=== PATIENT | male | born 1970 | race Hispanic/Latino ===

== ENCOUNTER 2017-11-06 11:50 | Emergency (ER) | payer MEDICARE ==
[~2017-11-06 11:50] MED LIST: ALBU8.5H8 IH; BENZ-51 PO; BUSP15TA3 PO; CANA1TAB4 PO; ESOM40CA PO; GABA-531 PO; HYDR-4060 PO; INSU100I13 SQ; LORA10TA7 PO; LUBI24CA2 PO; MONT10TA24 PO; OLME5TAB PO; PRED10TA3 PO; ROSU10TA PO; SIME125T52 PO; SUCR1TAB2 PO; THEO400T3 PO; TIOT18CA3 IH; TRAZ150T79 PO
[2017-11-06] MEDS ORDERED: MAGNESIUM 2GM PREMIX 50ML 50 ML IV ONE (12:31)
[2017-11-06] MEDS ORDERED: METHYLPREDNISOLONE SOD SUCC 125MG/2ML VIAL ONE (12:31)
[2017-11-06 12:34] LABS: BASOPHILS % (AUTO) 0.5 % (0.0-5.0); EOSINOPHILS % (AUTO) 0.2 % (0.0-8.0); LYMPHOCYTES % (AUTO) 7.3 % (21.0-51.0); MEAN CORPUSCULAR HEMOGLOBIN 29.2 pg (27.0-33.0); MEAN CORPUSCULAR HGB CONC 31.7 g/dL (32.0-36.0); MEAN CORPUSCULAR VOLUME 92.2 fL (79-99); MONOCYTES % (AUTO) 3.1 % (3.0-13.0); NEUTROPHILS % (AUTO) 88.9 % (40.0-77.0); PLATELET COUNT (AUTO) 251 K/uL (130-400); RED BLOOD CELL COUNT(AUTO) 4.34 MIL/uL (4.50-6.20); RED CELL DISTRIBUTION WIDTH 13.9 % (11.0-15.5); WHITE BLOOD COUNT (AUTO) 10.8 K/uL (4.8-10.8)
[2017-11-06 12:35] LABS: APPEARANCE,URINE Clear (CLEAR); BILIRUBIN,URINE Negative (NEGATIVE); COLOR,URINE Yellow (YELLOW); GLUCOSE, URINE (UA) >=1000 mg/dL (NEGATIVE); KETONES,URINE 40 mg/dL (NEGATIVE); LEUKOCYTE ESTERASE ,URINE Negative (NEGATIVE); NITRATE,URINE Negative (NEGATIVE); OCCULT BLOOD,URINE Negative (NEGATIVE); PH,URINE 7.5 (5.0-8.0); PROTEIN,URINE Negative (NEGATIVE); UROBILINOGEN,URINE 0.2 mg/dL (0.2-1.0)
[2017-11-06 12:41] LABS: CREATININE 0.8 mg/dL (0.5-1.5); POTASSIUM 4.2 mmol/L (3.5-5.1)
[2017-11-06 12:45] LABS: BACTERIA,URINE Rare /HPF (None Seen); RBC,URINE 0-1 /HPF (0-1); SQUAMOUS EPITHELIAL CELL,UR Rare /LPF (0-2); WBC,URINE 0-1 /HPF (0-1)
[2017-11-06] MEDS ORDERED: IPRATROPIUM/ALBUTEROL SULFATE 3 ML SOLUTION IH ONE (13:21)
[2017-11-06 13:41] LABS: B-TYPE NATRIURETIC PEPTIDE 12 pg/mL (0-100)
[2018-04-26] MEDS ORDERED: OLME5TAB PO (12:00)
[2018-04-26] MEDS ORDERED: ASPI-1197 PO (12:00)
[2018-04-26] MEDS ORDERED: FEXO-59 PO (12:00)
[2018-04-26] MEDS ORDERED: ATOR10TA69 PO (12:00)
[2018-04-26] MEDS ORDERED: METOPROLOL PO (12:00)
[2018-04-26] MEDS ORDERED: INSU3INS9 SQ (12:00)
[2018-04-26] MEDS ORDERED: TIOT18CA3 IH (12:00)
[2018-04-26] MEDS ORDERED: PRED20TA3 PO (12:00)
[2018-04-26] MEDS ORDERED: SIME80TA12 PO (12:00)
[2018-04-26] MEDS ORDERED: LINA290C PO (12:00)
[2018-04-26] MEDS ORDERED: THEOPHYLLINE PO (12:00)
[2018-04-26] MEDS ORDERED: FURO20TA4 PO (12:00)
[2018-04-26] MEDS ORDERED: BENZONATE PO (12:00)
== END 2017-11-06 15:56 | disposition home or self-care (01) ==
LOC: EDH 11:50
DX: J44.1 Chronic obstructive pulmonary disease with (acute) exacerbation (principal); I10 Essential (primary) hypertension; E11.9 Type 2 diabetes mellitus without complications; Z79.4 Long term (current) use of insulin
CPT/HCPCS: 36415; 71045; 80048; 81001; 83880; 84484; 85025; 87804 ×2; 93005; 96365; 96375; 99285; J2930; J3475

== ENCOUNTER → 2017-12-09 | Outpatient (CLI) | payer MEDICARE ==
[~2017-12-09] MED LIST changes: +ASPI-1197 PO; +ATOR10TA69 PO; +BENZONATE PO; +FEXO-59 PO; +FURO20TA4 PO; +INSU3INS9 SQ; +LINA290C PO; +METOPROLOL PO; +PRED20TA3 PO; +SIME80TA12 PO; +THEOPHYLLINE PO
== END | disposition home or self-care (01) ==
LOC: SHCH 11:31
PROVIDERS: ATTEND Internal Medicine Cardiovascular Disease
DX: R00.2 Palpitations (principal); R06.00 Dyspnea, unspecified
CPT/HCPCS: 93306

== ENCOUNTER → 2017-12-16 | Outpatient (CLI) | payer MEDICARE ==
[2017-12-16 14:15] LABS: ABG BASE EXCESS 8.3 mmol/L (-2.0-3.0); ABG HCO3 35.3 mmol/L (21.0-28.0); ABG OXYGEN SATURATION 80.3 % (95.0-99.0); ABG PCO2 58 mmHg (35-48)
== END ==
LOC: RESP 13:32
PROVIDERS: ATTEND Internal Medicine Pulmonary Disease
DX: I10 Essential (primary) hypertension (principal); J44.9 Chronic obstructive pulmonary disease, unspecified; M41.9 Scoliosis, unspecified; R09.02 Hypoxemia; G47.33 Obstructive sleep apnea (adult) (pediatric); E66.9 Obesity, unspecified; G47.61 Periodic limb movement disorder
CPT/HCPCS: 36600; 82803

== ENCOUNTER 2018-07-21 16:02 | Emergency (ER) | payer MEDICARE ==
[~2018-07-21 16:02] MED LIST changes: -ALBU8.5H8 IH; -BENZ-51 PO; -INSU100I13 SQ; -LORA10TA7 PO; -LUBI24CA2 PO; -PRED10TA3 PO; -ROSU10TA PO; -SIME125T52 PO; -SUCR1TAB2 PO; -THEO400T3 PO; -TRAZ150T79 PO
[2018-07-21 16:30] LABS: APPEARANCE,URINE Clear (CLEAR); BILIRUBIN,URINE Negative (NEGATIVE); COLOR,URINE Yellow (YELLOW); GLUCOSE, URINE (UA) >=1000 mg/dL (NEGATIVE); KETONES,URINE 40 mg/dL (NEGATIVE); LEUKOCYTE ESTERASE ,URINE Negative (NEGATIVE); NITRATE,URINE Negative (NEGATIVE); OCCULT BLOOD,URINE Negative (NEGATIVE); PROTEIN,URINE Negative (NEGATIVE); UROBILINOGEN,URINE 0.2 mg/dL (0.2-1.0)
[2018-07-21 16:42] LABS: BACTERIA,URINE None Seen /HPF (None Seen); RBC,URINE None Seen /HPF (0-1); SQUAMOUS EPITHELIAL CELL,UR 0-2 /HPF (0-2); WBC,URINE None Seen /HPF (0-1)
[2018-07-21] MEDS ORDERED: AMIODARONE HCL 50 MG/ML 3 ML VIAL ONE (17:01)
[2018-07-21] MEDS ORDERED: NITROGLYCERIN 1GM/1 INCH PACKET TD ONE (17:02)
[2018-07-21] MEDS ORDERED: ASPIRIN 325 MG TABLET ONE (17:02)
[2018-07-21 17:07] LABS: BASOPHILS % (AUTO) 0.3 % (0.0-5.0); EOSINOPHILS % (AUTO) 0.2 % (0.0-8.0); HEMATOCRIT 41.5 % (42-54); LYMPHOCYTES % (AUTO) 9.5 % (21.0-51.0); MEAN CORPUSCULAR HEMOGLOBIN 29.1 pg (27.0-33.0); MEAN CORPUSCULAR HGB CONC 31.8 g/dL (32.0-36.0); MEAN CORPUSCULAR VOLUME 91.6 fL (79-99); MONOCYTES % (AUTO) 7.8 % (3.0-13.0); NEUTROPHILS % (AUTO) 82.2 % (40.0-77.0); PLATELET COUNT (AUTO) 214 K/uL (130-400); RED BLOOD CELL COUNT(AUTO) 4.52 MIL/uL (4.50-6.20); RED CELL DISTRIBUTION WIDTH 13.6 % (11.0-15.5); WHITE BLOOD COUNT (AUTO) 9.5 K/uL (4.8-10.8)
[2018-07-21 17:13] LABS: INR 0.92 (0.85-1.15); PARTIAL THROMBOPLASTIN TIME 24.3 SEC (26.3-35.5); PROTHROMBIN TIME 9.7 SEC (9.6-11.6)
[2018-07-21] MEDS ORDERED: SODIUM CHLORIDE 0.9% 500ML 500 ML IV ONE (19:41)
[2018-07-21 20:13] LABS: CREATININE 0.9 mg/dL (0.5-1.5); POTASSIUM 4.2 mmol/L (3.5-5.1)
[2018-07-21 20:18] LABS: ALBUMIN 3.7 g/dL (3.5-5.0); BILIRUBIN,TOTAL 0.3 mg/dL (0.2-1.0)
[2018-07-21] MEDS ORDERED: KETOROLAC TROMETHAMINE 30MG/ML ONE (20:41)
== END 2018-07-21 23:03 | disposition home or self-care (01) ==
LOC: EDH 16:02
DX: S20.211A Contusion of right front wall of thorax, initial encounter (principal); R00.0 Tachycardia, unspecified; E10.8 Type 1 diabetes mellitus with unspecified complications; M41.9 Scoliosis, unspecified; J44.9 Chronic obstructive pulmonary disease, unspecified; I10 Essential (primary) hypertension; Z98.890 Other specified postprocedural states; W18.39XA Other fall on same level, initial encounter; Y93.89 Activity, other specified; Y92.89 Other specified places as the place of occurrence of the external cause; Y99.8 Other external cause status
CPT/HCPCS: 36415; 71101; 80053; 81001; 82550; 84484; 85025; 85378; 85610; 85730; 93005; 96374; 96375; 99291; J0282; J1885; J7040

== ENCOUNTER 2019-01-05 14:55 | Emergency (ER) | payer MEDICARE ==
[2019-01-05] MEDS ORDERED: IPRATROPIUM/ALBUTEROL SULFATE 3 ML SOLUTION IH ONE (15:24)
[2019-01-05] MEDS ORDERED: MECLIZINE HCL 25 MG TABLET ONE ×2 (15:52→17:30)
[2019-01-05 16:03] LABS: BASOPHILS % (AUTO) 0.6 % (0.0-5.0); EOSINOPHILS % (AUTO) 0.2 % (0.0-8.0); HEMATOCRIT 42.2 % (42-54); LYMPHOCYTES % (AUTO) 5.6 % (21.0-51.0); MEAN CORPUSCULAR HEMOGLOBIN 29.3 pg (27.0-33.0); MEAN CORPUSCULAR HGB CONC 31.7 g/dL (32.0-36.0); MEAN CORPUSCULAR VOLUME 92.5 fL (79-99); MONOCYTES % (AUTO) 2.5 % (3.0-13.0); NEUTROPHILS % (AUTO) 91.1 % (40.0-77.0); NUCLEATED RED BLOOD CELLS 0.1 % (0.0-0.19); PLATELET COUNT (AUTO) 230 K/uL (130-400); RED BLOOD CELL COUNT(AUTO) 4.56 MIL/uL (4.50-6.20); RED CELL DISTRIBUTION WIDTH 13.8 % (11.0-15.5); WHITE BLOOD COUNT (AUTO) 10.8 K/uL (4.8-10.8)
[2019-01-05 16:24] LABS: POTASSIUM 5.1 mmol/L (3.5-5.1)
[2019-01-05 16:28] LABS: ALBUMIN 3.8 g/dL (3.5-5.0); BILIRUBIN,TOTAL 0.2 mg/dL (0.2-1.0); TOTAL PROTEIN, SERUM 6.5 g/dL (6.0-8.3)
== END 2019-01-05 19:31 | disposition home or self-care (01) ==
LOC: EDH 14:55
DX: J44.1 Chronic obstructive pulmonary disease with (acute) exacerbation (principal); H81.10 Benign paroxysmal vertigo, unspecified ear; E10.8 Type 1 diabetes mellitus with unspecified complications; I10 Essential (primary) hypertension; F41.9 Anxiety disorder, unspecified; Z98.890 Other specified postprocedural states; Z79.4 Long term (current) use of insulin
CPT/HCPCS: 36415; 71045; 80053; 84484; 85025; 93005; 94640

== ENCOUNTER 2019-05-27 15:19 | Emergency (ER) | payer MEDICARE ==
[2019-05-27] MEDS ORDERED: LIDOCAINE 5% TOPICAL PATCH TP ONE (15:31)
[2019-05-27] MEDS ORDERED: ACETAMINOPHEN EXTRA STRENGTH 500 MG TABLET ONE (15:31)
== END 2019-05-27 16:19 | disposition home or self-care (01) ==
LOC: EDH 15:19
DX: S29.011A Strain of muscle and tendon of front wall of thorax, initial encounter (principal); J44.9 Chronic obstructive pulmonary disease, unspecified; I10 Essential (primary) hypertension; E11.9 Type 2 diabetes mellitus without complications; F41.9 Anxiety disorder, unspecified; Z79.4 Long term (current) use of insulin; X58.XXXA Exposure to other specified factors, initial encounter; Y93.89 Activity, other specified; Y92.89 Other specified places as the place of occurrence of the external cause; Y99.8 Other external cause status
CPT/HCPCS: 71045

== ENCOUNTER → 2019-06-28 | Outpatient (CLI) | payer MEDICARE | END | disposition home or self-care (01) | LOC: RAH 07:51 | PROVIDERS: ATTEND Orthopaedic Surgery | DX: M75.101 Unspecified rotator cuff tear or rupture of right shoulder, not specified as traumatic (principal); M25.411 Effusion, right shoulder; M65.811 Other synovitis and tenosynovitis, right shoulder | CPT/HCPCS: 73221 ==

== ENCOUNTER 2020-01-06 13:57 | Emergency (ER) | payer MEDICARE ==
[~2020-01-06 13:57] MED LIST changes: -MONT10TA24 PO; +MONT10TA26 PO
[2020-01-06 15:45] LABS: BASOPHILS % (AUTO) 0.2 % (0.0-5.0); HEMATOCRIT 40.1 % (42-54); LYMPHOCYTES % (AUTO) 4.1 % (21.0-51.0); MEAN CORPUSCULAR HEMOGLOBIN 28.7 pg (27.0-33.0); MEAN CORPUSCULAR HGB CONC 28.4 g/dL (32.0-36.0); MONOCYTES % (AUTO) 4.2 % (3.0-13.0); NEUTROPHILS % (AUTO) 90.8 % (40.0-77.0); PLATELET COUNT (AUTO) 188 K/uL (130-400); RED BLOOD CELL COUNT(AUTO) 3.97 MIL/uL (4.50-6.20); RED CELL DISTRIBUTION WIDTH 12.5 % (11.0-15.5); WHITE BLOOD COUNT (AUTO) 11.1 K/uL (4.8-10.8)
[2020-01-06 16:03] LABS: CREATININE 1.1 mg/dL (0.5-1.5)
[2020-01-06 16:07] LABS: ALBUMIN 3.4 g/dL (3.5-5.0); BILIRUBIN,TOTAL 0.4 mg/dL (0.2-1.0); TOTAL PROTEIN, SERUM 6.7 g/dL (6.0-8.3)
[2020-01-06 16:55] LABS: APPEARANCE,URINE Clear (CLEAR); BILIRUBIN,URINE Negative (NEGATIVE); COLOR,URINE Yellow (YELLOW); GLUCOSE, URINE (UA) >=1000 mg/dL (NEGATIVE); KETONES,URINE 15 mg/dL (NEGATIVE); LEUKOCYTE ESTERASE ,URINE Negative (NEGATIVE); NITRATE,URINE Negative (NEGATIVE); OCCULT BLOOD,URINE Negative (NEGATIVE); PROTEIN,URINE Negative (NEGATIVE); UROBILINOGEN,URINE 0.2 mg/dL (0.2-1.0)
[2020-01-06 17:09] LABS: BACTERIA,URINE Rare /HPF (None Seen); SQUAMOUS EPITHELIAL CELL,UR Rare /HPF (0-2); WBC,URINE 0-1 /HPF (0-1)
== END 2020-01-06 18:28 | disposition home or self-care (01) ==
LOC: EDH 13:57
DX: S80.12XA Contusion of left lower leg, initial encounter (principal); F41.9 Anxiety disorder, unspecified; J45.909 Unspecified asthma, uncomplicated; J44.9 Chronic obstructive pulmonary disease, unspecified; E11.9 Type 2 diabetes mellitus without complications; I10 Essential (primary) hypertension; W18.39XA Other fall on same level, initial encounter; Y93.89 Activity, other specified; Y92.091 Bathroom in other non-institutional residence as the place of occurrence of the external cause; Y99.8 Other external cause status
CPT/HCPCS: 36415; 71045; 73590; 80053; 81001; 82550; 84484; 85025; 93005; 93971

== ENCOUNTER 2020-03-24 03:28 | Inpatient (IN) | payer MEDICARE ==
[2020-03-24] MEDS ORDERED: DILTIAZEM HCL 125 MG/25 ML VIAL IV ONE (03:39)
[2020-03-24 03:42] LABS: BASOPHILS % (AUTO) 0.2 % (0.0-5.0); EOSINOPHILS % (AUTO) 0.7 % (0.0-8.0); HEMATOCRIT 40.1 % (42-54); LYMPHOCYTES % (AUTO) 12.7 % (21.0-51.0); MEAN CORPUSCULAR HEMOGLOBIN 28.7 pg (27.0-33.0); MEAN CORPUSCULAR HGB CONC 28.4 g/dL (32.0-36.0); MONOCYTES % (AUTO) 10.9 % (3.0-13.0); NEUTROPHILS % (AUTO) 75.2 % (40.0-77.0); PLATELET COUNT (AUTO) 215 K/uL (130-400); RED BLOOD CELL COUNT(AUTO) 3.97 MIL/uL (4.50-6.20); RED CELL DISTRIBUTION WIDTH 12.3 % (11.0-15.5)
[2020-03-24] MEDS ORDERED: DILTIAZEM HCL 5 MG/ML 10 ML VIAL IV ONE (03:43)
[2020-03-24 03:52] LABS: CREATININE 0.9 mg/dL (0.5-1.5); POTASSIUM 3.8 mmol/L (3.5-5.1)
[2020-03-24 03:53] LABS: INR 0.99 (0.85-1.15); PARTIAL THROMBOPLASTIN TIME 26.9 SEC (26.3-35.5); PROTHROMBIN TIME 10.7 SEC (9.6-11.6)
[2020-03-24 03:57] LABS: ALBUMIN 3.4 g/dL (3.5-5.0); BILIRUBIN,TOTAL 0.3 mg/dL (0.2-1.0); THEOPHYLLINE 4.3 mcg/mL (10.0-20.0); TOTAL PROTEIN, SERUM 5.9 g/dL (6.0-8.3)
[2020-03-24] MEDS ORDERED: METOPROLOL TARTRATE 1 MG/ML 5ML VIAL IV ONE (04:55)
[2020-03-24 05:58] LABS: ABG BASE EXCESS 21.7 mmol/L (-2.0-3.0); ABG HCO3 54.9 mmol/L (21.0-28.0); ABG OXYGEN SATURATION 79.8 % (95.0-99.0); ABG PCO2 112 mmHg (35-48)
[2020-03-24] MEDS ORDERED: AMIODARONE HCL 150 MG in DEXTROSE 5%-WATER 100 ML IV SCH (06:30)
[2020-03-24] MEDS ORDERED: AMIODARONE HCL 450 MG in DEXTROSE 5%-WATER 250 ML IV SCH (06:30)
[2020-03-24] MEDS ORDERED: AMIODARONE HCL 360 MG in DEXTROSE 5%-WATER 200 ML IV SCH (06:30)
[2020-03-24] MEDS ORDERED: HYDROCODONE/ACETAMINOPHEN 5/325 MG TAB PO PRN ×2 (06:30)
[2020-03-24] MEDS ORDERED: ONDANSETRON HCL 4 MG/2 ML VIAL IVP PRN (06:30)
[2020-03-24] MEDS ORDERED: ACETAMINOPHEN 325 MG TAB PO PRN (06:30)
[2020-03-24] MEDS ORDERED: INSULIN R PO SS1 SQ SCH (07:30)
[2020-03-24] MEDS ORDERED: ENOXAPARIN SODIUM 40 MG/0.4 ML SYRINGE SQ SCH (09:00)
[2020-03-24] MEDS ORDERED: FAMOTIDINE/PF 20 MG/2 ML VIAL IV SCH (09:00)
== END 2020-03-24 09:03 | disposition left against medical advice (07) | DRG 310 ==
LOC: EDH 03:28 → EDHIP 05:57
PROVIDERS: ADMIT Internal Medicine; ATTEND Internal Medicine
DX: I48.91 Unspecified atrial fibrillation (principal); Z88.8 Allergy status to other drugs, medicaments and biological substances; F41.9 Anxiety disorder, unspecified; J44.9 Chronic obstructive pulmonary disease, unspecified; E11.9 Type 2 diabetes mellitus without complications; Z79.4 Long term (current) use of insulin; I10 Essential (primary) hypertension; Z53.29 Procedure and treatment not carried out because of patient's decision for other reasons
CPT/HCPCS: 36415; 36600; 71045; 80053; 80198; 82550; 82803; 83735; 83880; 84484; 85025; 85378; 85610; 85730; 93005; 99291; G0378; J0282; J3490; J7060

== ENCOUNTER 2020-03-28 21:08 | Inpatient (IN) | payer MEDICARE ==
[~2020-03-28] VITALS: Ht 167.6 cm; Wt 100.3 kg
[2020-03-28 22:04] LABS: BASOPHILS % (AUTO) 0.2 % (0.0-5.0); EOSINOPHILS % (AUTO) 0.1 % (0.0-8.0); HEMATOCRIT 42.4 % (42-54); LYMPHOCYTES % (AUTO) 7.1 % (21.0-51.0); MEAN CORPUSCULAR HEMOGLOBIN 27.9 pg (27.0-33.0); MEAN CORPUSCULAR HGB CONC 27.6 g/dL (32.0-36.0); MONOCYTES % (AUTO) 7.6 % (3.0-13.0); NEUTROPHILS % (AUTO) 84.3 % (40.0-77.0); PLATELET COUNT (AUTO) 218 K/uL (130-400); RED CELL DISTRIBUTION WIDTH 12.5 % (11.0-15.5); WHITE BLOOD COUNT (AUTO) 10.2 K/uL (4.8-10.8)
[2020-03-28 22:14] LABS: CREATININE 0.7 mg/dL (0.5-1.5); POTASSIUM 3.5 mmol/L (3.5-5.1)
[2020-03-28 22:19] LABS: ALBUMIN 3.6 g/dL (3.5-5.0); BILIRUBIN,TOTAL 0.4 mg/dL (0.2-1.0); TOTAL PROTEIN, SERUM 6.6 g/dL (6.0-8.3)
[2020-03-28 22:28] LABS: INR 0.96 (0.85-1.15); PROTHROMBIN TIME 10.4 SEC (9.6-11.6)
[2020-03-28 23:28] LABS: ABG BASE EXCESS 14.6 mmol/L (-2.0-3.0); ABG HCO3 51.1 mmol/L (21.0-28.0); ABG OXYGEN SATURATION 97.3 % (95.0-99.0); ABG PCO2 > 147 mmHg (35-48)
[2020-03-28] MEDS ORDERED: IPRATROPIUM/ALBUTEROL SULFATE 3 ML SOLUTION IH ONE (23:40)
[2020-03-28] MEDS ORDERED: FUROSEMIDE 10 MG/ML 4ML VIAL ONE (23:41)
[2020-03-28] MEDS ORDERED: CEFTRIAXONE SODIUM 1 GM ONE (23:42)
[2020-03-28] MEDS ORDERED: AZITHROMYCIN 500MG+NS 250ML 250 ML IV ONE (23:42)
[2020-03-29] VITALS (23 sets, daily range): BP systolic 82–140; BP diastolic 39–105
[2020-03-29] MEDS ORDERED: DiphenhydrAMINE HCL 50 MG/ML VIAL ONE (01:30)
[2020-03-29] MEDS ORDERED: METHYLPREDNISOLONE SOD SUCC 125MG/2ML VIAL ONE (01:31)
[2020-03-29] MEDS ORDERED: PROPOFOL 1000 MG/100 ML 100 ML IV ONE ×2 (02:02→15:19)
[2020-03-29 02:19] LABS: ABG BASE EXCESS 16.6 mmol/L (-2.0-3.0); ABG HCO3 51.2 mmol/L (21.0-28.0); ABG OXYGEN SATURATION 98.4 % (95.0-99.0); ABG PCO2 145 mmHg (35-48)
[2020-03-29] MEDS ORDERED: IPRATROPIUM/ALBUTEROL SULFATE 3 ML SOLUTION IH ONE (03:31)
[2020-03-29] MEDS ORDERED: ALBUTEROL SULFATE 0.083% 2.5 MG/3 ML INH IH ONE (03:31)
[2020-03-29 04:02] LABS: ABG BASE EXCESS 13.8 mmol/L (-2.0-3.0); ABG HCO3 50.3 mmol/L (21.0-28.0); ABG OXYGEN SATURATION 96.7 % (95.0-99.0); ABG PCO2 > 147 mmHg (35-48)
[2020-03-29 05:05] LABS: APPEARANCE,URINE Clear (CLEAR); BILIRUBIN,URINE Negative (NEGATIVE); COLOR,URINE Yellow (YELLOW); GLUCOSE, URINE (UA) >=1000 mg/dL (NEGATIVE); KETONES,URINE 40 mg/dL (NEGATIVE); LEUKOCYTE ESTERASE ,URINE Negative (NEGATIVE); NITRATE,URINE Negative (NEGATIVE); OCCULT BLOOD,URINE Nonhemolyzed Trace (NEGATIVE); PH,URINE 5.5 (5.0-8.0); PROTEIN,URINE POS 1+ mg/dL (NEGATIVE); UROBILINOGEN,URINE 0.2 mg/dL (0.2-1.0)
[2020-03-29 05:15] LABS: AMORPHOUS SEDIMENT,UR Rare /LPF (None Seen); BACTERIA,URINE None Seen /HPF (None Seen); HYALINE CASTS, URINE 0-1 /LPF (0-1 /LPF); RBC,URINE 0-1 /HPF (0-1); SQUAMOUS EPITHELIAL CELL,UR Rare /HPF (0-2); WBC,URINE 0-1 /HPF (0-1); YEAST,URINE BUDDING None Seen /HPF (None Seen)
[2020-03-29 05:55] LABS: BASOPHILS % (AUTO) 0.1 % (0.0-5.0); HEMATOCRIT 43.8 % (42-54); LYMPHOCYTES % (AUTO) 1.4 % (21.0-51.0); MEAN CORPUSCULAR HEMOGLOBIN 28.6 pg (27.0-33.0); MEAN CORPUSCULAR HGB CONC 26.9 g/dL (32.0-36.0); MEAN CORPUSCULAR VOLUME 106.1 fL (79-99); NEUTROPHILS % (AUTO) 94.5 % (40.0-77.0); PLATELET COUNT (AUTO) 197 K/uL (130-400); RED BLOOD CELL COUNT(AUTO) 4.13 MIL/uL (4.50-6.20); RED CELL DISTRIBUTION WIDTH 12.5 % (11.0-15.5); WHITE BLOOD COUNT (AUTO) 13.5 K/uL (4.8-10.8)
[2020-03-29 06:13] LABS: AMPHET/METH SCREEN,URINE NEGATIVE (NEGATIVE); BARBITURATE SCREEN, URINE NEGATIVE (NEGATIVE); BENZODIAZEPINES SCREEN,URINE POSITIVE (NEGATIVE); CANNABINOID SCREEN,URINE NEGATIVE (NEGATIVE); COCAINE SCREEN,URINE NEGATIVE (NEGATIVE); OPIATE SCREEN,URINE NEGATIVE (NEGATIVE); PHENCYCLIDINE SCREEN,URINE NEGATIVE (NEGATIVE)
[2020-03-29 06:24] LABS: ALANINE AMINOTRANSFERASE 22 U/L (12-78); ALBUMIN 3.5 g/dL (3.5-5.0); ASPARTATE AMINOTRANSFERASE 14 U/L (10-37); BILIRUBIN,TOTAL 0.4 mg/dL (0.2-1.0); CHLORIDE 99 mmol/L (101-111); CREATINE KINASE, TOTAL 31 U/L (21-232); CREATININE 0.8 mg/dL (0.5-1.5); GLOMERULAR FILTR. RATE CALC 108 mL/min (>60); GLUCOSE,RANDOM 149 mg/dL (70-105); LACTATE DEHYDROGENASE 196 U/L (81-234); MYOGLOBIN 60 ng/mL (10-92); POTASSIUM 3.9 mmol/L (3.5-5.1); SODIUM SERUM 147 mmol/L (136-145); TOTAL PROTEIN, SERUM 6.4 g/dL (6.0-8.3); TROPONIN I < 0.04 ng/mL (0.00-0.06); UREA NITROGEN, BLOOD 15 mg/dL (7-18)
[2020-03-29 06:52] LABS: CARBON DIOXIDE 47 mmol/L (21-32)
[2020-03-29] MEDS ORDERED: ENOXAPARIN SODIUM 40 MG/0.4 ML SYRINGE SQ ONE (07:42)
[2020-03-29] MEDS ORDERED: METHYLPREDNISOLONE SOD SUCC 40MG/ML 1ML ONE (07:42)
[2020-03-29 07:47] LABS: ABG BASE EXCESS 16.3 mmol/L (-2.0-3.0); ABG HCO3 48.5 mmol/L (21.0-28.0); ABG OXYGEN SATURATION 82.9 % (95.0-99.0); ABG PCO2 102 mmHg (35-48)
[2020-03-29] MEDS ORDERED: FAMOTIDINE/PF 20 MG/2 ML VIAL IV ONE (07:56)
[2020-03-29] MEDS: FAMOTIDINE/PF 20 MG/2 ML VIAL IV SCH ×2 (09:00→20:17)
[2020-03-29] MEDS: METHYLPREDNISOLONE SOD SUCC 40MG/ML 1ML IVP SCH ×2 (09:00→20:17)
[2020-03-29] MEDS: ENOXAPARIN SODIUM 40 MG/0.4 ML SYRINGE SQ SCH (09:00)
[2020-03-29] MEDS ORDERED: SODIUM CHLORIDE 0.9% 100 ML IV ONE ×2 (09:03→09:04)
[2020-03-29] MEDS ORDERED: CEFTRIAXONE SODIUM 1 GM ONE (09:03)
[2020-03-29] MEDS ORDERED: SUCCINYLCHOLINE CHLORIDE 20 MG/ML 10 ML VIAL IVP ONE (09:31)
[2020-03-29] MEDS ORDERED: ETOMIDATE 2 MG/ML 10 ML VIAL IVP ONE (09:31)
[2020-03-29] MEDS ORDERED: MORPHINE SULFATE 2 MG/ML 1ML SYG ONE (10:36)
[2020-03-29] MEDS: CEFTRIAXONE SODIUM 1 GM IVP SCH ×2 (11:00→21:49)
[2020-03-29] MEDS ORDERED: SERTRALINE HCL 50 MG TABLET PO SCH (11:45)
[2020-03-29] MEDS ORDERED: SERTRALINE HCL 50 MG TABLET ONE (12:27)
--- NOTE | 2020-03-29 15:10 | NUR ---
RECEIVED PT FROM ER, PT ON BIPAP VERY SHORT OF BREATH, TACHYPNEIC AND TACHYCARDIC, DR. VALENTINO AT BEDSIDE. PT AWAKE AND ALERT. SISTERS AT BEDSIDE. MD DISCUSSED WITH PT AND PT SISTER PT CRITICAL CONDITION AND CHRONIC RESPIRATORY FAILURE ISSUES DUE TO SCOLIOSIS IN DETAIL AND OFFERED OPTIONS. PT AGREES TO INTUBATION AND TRACHEOSTOMY. RISKS DISCUSSED AND ALL QUESTIONS WERE ANSWERED BY MD.
[2020-03-29] MEDS ORDERED: SODIUM CHLORIDE 0.9% 1000ML 1,000 ML IV ONE (15:20)
[2020-03-29] MEDS ORDERED: FENTANYL CITRATE PF 50 MCG/1 ML 2ML VIAL ONE (15:21)
[2020-03-29] MEDS ORDERED: FLUT1BLS3 IH (15:47)
[2020-03-29] MEDS ORDERED: BENZ-51 PO (15:47)
[2020-03-29] MEDS ORDERED: LUBI24CA2 PO (15:47)
[2020-03-29] MEDS ORDERED: EMPA25TA PO (15:48)
[2020-03-29] MEDS ORDERED: METO25PO2 MC (15:50)
[2020-03-29] MEDS ORDERED: SUCR1TAB2 PO (15:51)
[2020-03-29] MEDS ORDERED: GLIM2TAB30 PO (15:53)
[2020-03-29] MEDS ORDERED: SERT50TA PO (15:56)
[2020-03-29] MEDS ORDERED: PROPOFOL 1000 MG/100 ML IV PRN (16:00)
--- NOTE | 2020-03-29 16:30 | NUR ---
DR. VALENTINO AT BEDSIDE PT ORALLY INTUBATED WITH ETT SIZE 8 20 CM AT LIPS. TOLERATED WELL. PLACED ON PRESCRIBED VENT SETTINGS.
[2020-03-29] MEDS ORDERED: FENTANYL 1000MCG+NS 100ML 100 ML ONE (16:41)
[2020-03-29] MEDS: PROPOFOL 1000 MG/100 ML 100 ML IV SCH ×3 (17:01→21:44)
[2020-03-29] MEDS ORDERED: FENTANYL CITRATE PF 0.05 MG/ML 1,000 MCG in SODIUM CHLORIDE 0.9% 100 ML IVPB SCH (17:15)
[2020-03-29] MEDS: FENTANYL 1000MCG+NS 100ML IV.SOLN IV SCH ×2 (17:54→21:46)
[2020-03-29 18:34] LABS: ABG BASE EXCESS 12.8 mmol/L (-2.0-3.0); ABG HCO3 40.7 mmol/L (21.0-28.0); ABG PCO2 66 mmHg (35-48)
--- NOTE | 2020-03-29 18:43 | NUR ---
BELONGINGS SISTER CRYSTAL ACOSTA BELONGS AND HOME MEDICATIONS Addendum: 03/29/20 at 1851 by JESSEE WAN RN RN Amended: Links added.
--- NOTE | 2020-03-29 18:46 | NUR ---
UNABLE TO COMPLETE PATIENT ADMISSION DUE TO PT INTUBATED AND SEDATED. FAMILY IS UNABLE TO BE PRESENT AT THIS TIME. Addendum: 03/29/20 at 1851 by JESSEE WAN RN RN Amended: Links added.
--- NOTE | 2020-03-29 19:47 | NUR ---
Assumed care of patient after report received from dayshift nurse. Patient sedated on Fentanyl, Propofol drips. Initial assessment completed. US of lower extremities in progress.
[2020-03-29] MEDS: BUSPIRONE HCL 5 MG TABLET PO SCH (20:17)
[2020-03-29] MEDS: AZITHROMYCIN 500MG+NS 250ML 250 ML IV SCH ×2 (23:03→23:04)
[2020-03-30] VITALS (63 sets, daily range): BP systolic 96–142; BP diastolic 57–90
[2020-03-30] MEDS: PROPOFOL 1000 MG/100 ML 100 ML IV SCH ×5 (00:37→23:36)
[2020-03-30 03:37] LABS: MEAN CORPUSCULAR HEMOGLOBIN 28.4 pg (27.0-33.0); MEAN CORPUSCULAR HGB CONC 28.3 g/dL (32.0-36.0); MEAN CORPUSCULAR VOLUME 100.3 fL (79-99); RED BLOOD CELL COUNT(AUTO) 3.59 MIL/uL (4.50-6.20); RED CELL DISTRIBUTION WIDTH 12.7 % (11.0-15.5)
[2020-03-30 03:49] LABS: CREATININE 0.9 mg/dL (0.5-1.5); POTASSIUM 3.5 mmol/L (3.5-5.1)
[2020-03-30 03:52] LABS: INR 1.03 (0.85-1.15); PARTIAL THROMBOPLASTIN TIME 24.7 SEC (26.3-35.5); PROTHROMBIN TIME 11.1 SEC (9.6-11.6)
[2020-03-30 05:21] LABS: ABG BASE EXCESS 9.3 mmol/L (-2.0-3.0); ABG HCO3 36.6 mmol/L (21.0-28.0); ABG OXYGEN SATURATION 97.7 % (95.0-99.0); ABG PCO2 61 mmHg (35-48)
--- NOTE | 2020-03-30 05:55 | NUR ---
Potassium level 3.5. Call placed to hospitalist station supervisor. Order obtained for potassium replacement protocol, magnesium level, and magnesium replacement protocol.
[2020-03-30] MEDS ORDERED: MAGNESIUM 2GM PREMIX 50ML 50 ML IV ONE (06:33)
--- NOTE | 2020-03-30 06:47 | NUR ---
Magnesium level 1.9. Replacement in progress.
[2020-03-30] MEDS: MAGNESIUM 2GM PREMIX 50ML 50 ML IV PRN (07:58)
[2020-03-30] MEDS: ENOXAPARIN SODIUM 40 MG/0.4 ML SYRINGE SQ SCH (08:29)
[2020-03-30] MEDS: FAMOTIDINE/PF 20 MG/2 ML VIAL IV SCH ×2 (08:29→21:19)
[2020-03-30] MEDS: METHYLPREDNISOLONE SOD SUCC 40MG/ML 1ML IVP SCH (08:30)
[2020-03-30] MEDS: SERTRALINE HCL 50 MG TABLET PO SCH (08:31)
[2020-03-30] MEDS: BUSPIRONE HCL 5 MG TABLET PO SCH ×2 (08:31→21:19)
[2020-03-30] MEDS: LIDOCAINE HCL-MPF 1% 2ML VIAL IV PRN (08:32)
[2020-03-30] MEDS: POTASSIUM CHLORIDE 20MEQ/100ML 100 ML IV PRN (08:32)
[2020-03-30] MEDS: FENTANYL 1000MCG+NS 100ML IV.SOLN IV SCH ×2 (08:33→16:21)
--- NOTE | 2020-03-30 11:04 | NUR ---
DC PLAN PATIENT LEFT AMA RETURNED. NOW VENTED. DARSHAN 19 NEGATIVE 03/29. ROSMERY WILL CONTINUE TO FOLLOW. POSSIBLE TRACHE AND PEG. Addendum: 03/30/20 at 1105 by REUBEN SORIANO RN CM Amended: Links added.
[2020-03-30] MEDS ORDERED: DEXMEDETOMIDINE HCL 200 MCG in SODIUM CHLORIDE 0.9% 50 ML IV SCH (11:17)
[2020-03-30] MEDS: DEXTROSE 5%-WATER 1,000 ML IV SCH ×2 (12:00→21:20)
[2020-03-30] MEDS: CEFTRIAXONE SODIUM 1 GM IVP SCH ×2 (13:48→23:04)
--- NOTE | 2020-03-30 15:58 | NUR ---
DR. HANNA NOTIFIED OF CONSULT. WILL SEE PT IN AM.
[2020-03-30] MEDS ORDERED: ERYTHROMYCIN BASE 250 MG TABLET PO PRN (17:30)
--- NOTE | 2020-03-30 19:46 | NUR ---
Pt Sats 88% with 0 return volume. Added 15 CC to the cuff. Cuff seems to be torn. Art RN notified. Sat around 93% at the moment with 100% FIO2. Return volume is currently at 471. Addendum: 03/30/20 at 1950 by CELESTINO GIBBONS RT Amended: Links added.
[2020-03-30] MEDS: DOCUSATE SODIUM 100 MG CAP PO SCH (21:19)
[2020-03-30] MEDS ORDERED: VANCOMYCIN 1GM+NS 250ML 250 ML IV SCH (23:00)
[2020-03-30] MEDS ORDERED: VANCOMYCIN PROTOCOL PER PHARMACY IV SCH (23:00)
[2020-03-30] MEDS: AZITHROMYCIN 500MG+NS 250ML 250 ML IV SCH (23:04)
[2020-03-31] VITALS (25 sets, daily range): BP systolic 119–142; BP diastolic 63–82
[2020-03-31] MEDS: FENTANYL 1000MCG+NS 100ML IV.SOLN IV SCH ×2 (01:49→13:25)
[2020-03-31 03:55] LABS: HEMATOCRIT 32.1 % (42-54); MEAN CORPUSCULAR HEMOGLOBIN 28.3 pg (27.0-33.0); MEAN CORPUSCULAR HGB CONC 28.7 g/dL (32.0-36.0); MEAN CORPUSCULAR VOLUME 98.8 fL (79-99); PLATELET COUNT (AUTO) 158 K/uL (130-400); RED BLOOD CELL COUNT(AUTO) 3.25 MIL/uL (4.50-6.20); RED CELL DISTRIBUTION WIDTH 13.1 % (11.0-15.5); WHITE BLOOD COUNT (AUTO) 9.7 K/uL (4.8-10.8)
[2020-03-31] MEDS: PROPOFOL 1000 MG/100 ML 100 ML IV SCH ×3 (04:11→13:26)
[2020-03-31 04:13] LABS: CARBON DIOXIDE 31 mmol/L (21-32); CHLORIDE 109 mmol/L (101-111); CREATININE 1.1 mg/dL (0.5-1.5); GLOMERULAR FILTR. RATE CALC 75 mL/min (>60); GLUCOSE,RANDOM 97 mg/dL (70-105); SODIUM SERUM 150 mmol/L (136-145); UREA NITROGEN, BLOOD 14 mg/dL (7-18)
[2020-03-31 04:27] LABS: LYMPHOCYTES % (MANUAL) 17 % (22-44); MAN.DIFF COMMENT-IMPRESSION MANUAL DIFFERENTIAL; MONOCYTES % (MANUAL) 14 % (2-9); PLATELET MORPHOLOGY COMMENT ADEQUATE; SEGMENTED NEUTROPHILS % 69 % (40-70)
[2020-03-31 04:34] LABS: POTASSIUM 2.6 mmol/L (3.5-5.1)
[2020-03-31] MEDS: DOCUSATE SODIUM 100 MG CAP PO SCH ×3 (05:00→21:22)
[2020-03-31] MEDS: POTASSIUM CHLORIDE 20MEQ/100ML 100 ML IV PRN ×4 (06:24→16:29)
[2020-03-31] MEDS: LIDOCAINE HCL-MPF 1% 2ML VIAL IV PRN (06:25)
[2020-03-31] MEDS: DEXTROSE 5%-WATER 1,000 ML IV SCH (08:22)
[2020-03-31] MEDS: FAMOTIDINE/PF 20 MG/2 ML VIAL IV SCH ×2 (08:22→21:22)
[2020-03-31] MEDS: BUSPIRONE HCL 5 MG TABLET PO SCH ×2 (08:56→21:22)
[2020-03-31] MEDS: SERTRALINE HCL 50 MG TABLET PO SCH (08:56)
[2020-03-31] MEDS: SENNOSIDES 8.6 MG TABLET PO SCH (08:56)
[2020-03-31] MEDS: ENOXAPARIN SODIUM 40 MG/0.4 ML SYRINGE SQ SCH (09:00)
[2020-03-31] MEDS: CEFTRIAXONE SODIUM 1 GM IVP SCH (11:10)
[2020-03-31] MEDS ORDERED: SODIUM CHLORIDE 0.9% 1000ML 1,000 ML IV ONE (11:25)
[2020-03-31] MEDS ORDERED: MIDAZOLAM HCL 1 MG/ML 2ML VIAL ONE (11:27)
[2020-03-31] MEDS ORDERED: FENTANYL CITRATE PF 50 MCG/1 ML 2ML VIAL ONE ×2 (11:28→12:26)
[2020-03-31] MEDS ORDERED: PROPOFOL 10 MG/ML 20ML VIAL IV ONE (11:28)
--- NOTE | 2020-03-31 11:30 | NUR ---
Pt to OR. Pt to OR with OR team. report given to PROJECT MANAGER FINANCE and COW TENDER. All questions answered.
[2020-03-31] MEDS ORDERED: ROCURONIUM 10MG/1ML SYR 10 MG/ML ML ONE ×2 (11:33→12:15)
[2020-03-31 11:57] LABS: ABG HCO3 35.3 mmol/L (21.0-28.0); ABG OXYGEN SATURATION 99.2 % (95.0-99.0); ABG PCO2 57 mmHg (35-48)
[2020-03-31] MEDS ORDERED: LIDOCAINE 1%-EPI 1:100,000 20 ML VIAL IJ ONE (12:00)
[2020-03-31] MEDS ORDERED: EPHEDRINE SULFATE 50 MG/ML AMPULE ONE (12:17)
--- NOTE | 2020-03-31 13:12 | NUR ---
Pt returned from OR. Pt returned from OR with tracheostomy placed. Report received.
[2020-03-31] MEDS: CEFTAZIDIME PENTAHYDRATE 1 GM/VIAL IVP SCH ×2 (16:30→22:42)
--- NOTE | 2020-03-31 19:19 | NUR ---
SPOKE AT LENGTH TO PATIENTS SISTER CRYSTAL BLOOM- STATES SHE IS POWER OF HOTEL FRONT DESK CLERK AND COPY IS IN CHART PER SISTER, PT LIVES ALONE 2 BLOCKS FROM SISTER- BOTH SISTERS RAJWINDER AND CRYSTAL PROVIDE CARE TO PATIENT. PT HAS ALL DME, RAMP, SERVICES, PT REQURES COACHING AND REASSURANCE, HAS HISTORY OF ANXIETY AND IMPULSIVE BEHAVIOR, HAS NEEDED CARE FOR A VERY LONG TIME.. NEW TRACH TODAY , ORDER FOR LT[facility] AND SPEECH EVAL -- VERBAL YAO GIVEN ADVISED RN AT BEDSIDE THAT REFERRAL WILL LIKELY BE INITIATED THURSDAY AFTER THE SPEECH EVAL. VERBALIZED UNDERSTANDING, ASKED THIS CM TO GO TO BEDSIDE TO REASSURE PATIENT. Addendum: 03/31/20 at 1927 by CHARLES CASTANEDA RN CM Amended: Links added.
--- NOTE | 2020-03-31 19:27 | NUR ---
RICHELLE LAI, CONSENT FOR REFERRAL GIVEN Addendum: 03/31/20 at 1936 by CHARLES CASTANEDA RN CM Amended: Links added.
[2020-04-01] VITALS (24 sets, daily range): BP systolic 112–152; BP diastolic 56–87
[2020-04-01 03:53] LABS: BASOPHILS % (AUTO) 0.2 % (0.0-5.0); EOSINOPHILS % (AUTO) 0.4 % (0.0-8.0); HEMATOCRIT 35.9 % (42-54); LYMPHOCYTES % (AUTO) 8.2 % (21.0-51.0); MEAN CORPUSCULAR HGB CONC 28.7 g/dL (32.0-36.0); MEAN CORPUSCULAR VOLUME 97.6 fL (79-99); MONOCYTES % (AUTO) 10.5 % (3.0-13.0); NEUTROPHILS % (AUTO) 80.2 % (40.0-77.0); PLATELET COUNT (AUTO) 167 K/uL (130-400); RED BLOOD CELL COUNT(AUTO) 3.68 MIL/uL (4.50-6.20); RED CELL DISTRIBUTION WIDTH 13.5 % (11.0-15.5); WHITE BLOOD COUNT (AUTO) 10.3 K/uL (4.8-10.8)
[2020-04-01 04:25] LABS: ALBUMIN 2.7 g/dL (3.5-5.0); BILIRUBIN,TOTAL 0.5 mg/dL (0.2-1.0); CREATININE 1.1 mg/dL (0.5-1.5); POTASSIUM 3.6 mmol/L (3.5-5.1); TOTAL PROTEIN, SERUM 5.8 g/dL (6.0-8.3)
[2020-04-01] MEDS: DEXTROSE 5%-WATER 1,000 ML IV SCH (04:49)
[2020-04-01] MEDS: DOCUSATE SODIUM 100 MG CAP PO SCH ×2 (05:13→11:25)
[2020-04-01] MEDS: LIDOCAINE HCL-MPF 1% 2ML VIAL IV PRN (05:13)
[2020-04-01] MEDS: POTASSIUM CHLORIDE 20MEQ/100ML 100 ML IV PRN (05:14)
[2020-04-01] MEDS: CEFTAZIDIME PENTAHYDRATE 1 GM/VIAL IVP SCH ×3 (06:17→23:17)
[2020-04-01] MEDS: SERTRALINE HCL 50 MG TABLET PO SCH (08:00)
[2020-04-01] MEDS: FAMOTIDINE/PF 20 MG/2 ML VIAL IV SCH ×2 (08:01→21:14)
[2020-04-01] MEDS: ENOXAPARIN SODIUM 40 MG/0.4 ML SYRINGE SQ SCH (08:01)
[2020-04-01] MEDS: BUSPIRONE HCL 5 MG TABLET PO SCH ×2 (08:02→21:14)
[2020-04-01] MEDS: SENNOSIDES 8.6 MG TABLET PO SCH (08:02)
[2020-04-01] MEDS ORDERED: VANCOMYCIN 1.75 GM in SODIUM CHLORIDE 0.9% 250 ML IV ONE (13:30)
[2020-04-01] MEDS ORDERED: COMPOUND IV REFRIGERATED 1 EACH IVSOLN MISC PRN (13:30)
--- NOTE | 2020-04-01 15:30 | NUR ---
DR VALENTINO AT BEDSIDE DR VALENTINO PLACED PATIENT ON 21% FIO2. PATIENT DID NOT TOLERATE, DESATURATING TO 82-88%. FIO2 INCREASED TO 30% AND PATIENT NOW SATURATING 92-96%
[2020-04-01] MEDS ORDERED: ONDANSETRON HCL 4 MG/2 ML VIAL IVP PRN (17:45)
[2020-04-01] MEDS ORDERED: MAG HYDROX/AL HYDROX/SIMETH ES 30 ML SUSP UDCUP PO PRN (17:45)
[2020-04-01] MEDS: IPRATROPIUM/ALBUTEROL SULFATE 3 ML SOLUTION IH SCH (18:17)
[2020-04-02] VITALS (23 sets, daily range): BP systolic 114–158; BP diastolic 55–109
[2020-04-02] MEDS: IPRATROPIUM/ALBUTEROL SULFATE 3 ML SOLUTION IH SCH ×4 (00:46→18:50)
[2020-04-02] MEDS ORDERED: VANCOMYCIN 1GM+NS 250ML 250 ML IV SCH (02:00)
[2020-04-02 03:55] LABS: BASOPHILS % (AUTO) 0.2 % (0.0-5.0); EOSINOPHILS % (AUTO) 1.6 % (0.0-8.0); HEMATOCRIT 36.6 % (42-54); LYMPHOCYTES % (AUTO) 8.3 % (21.0-51.0); MEAN CORPUSCULAR HEMOGLOBIN 28.6 pg (27.0-33.0); MEAN CORPUSCULAR VOLUME 98.9 fL (79-99); MONOCYTES % (AUTO) 10.3 % (3.0-13.0); NEUTROPHILS % (AUTO) 79.1 % (40.0-77.0); PLATELET COUNT (AUTO) 171 K/uL (130-400); RED CELL DISTRIBUTION WIDTH 13.4 % (11.0-15.5); WHITE BLOOD COUNT (AUTO) 8.1 K/uL (4.8-10.8)
[2020-04-02 04:22] LABS: ALBUMIN 2.5 g/dL (3.5-5.0); BILIRUBIN,TOTAL 0.4 mg/dL (0.2-1.0); CREATININE 1.2 mg/dL (0.5-1.5); POTASSIUM 3.6 mmol/L (3.5-5.1); TOTAL PROTEIN, SERUM 5.6 g/dL (6.0-8.3)
[2020-04-02] MEDS: CEFTAZIDIME PENTAHYDRATE 1 GM/VIAL IVP SCH ×3 (06:39→23:26)
[2020-04-02] MEDS ORDERED: POTASSIUM CHLORIDE 20 MEQ ERTAB PO PRN (08:15)
[2020-04-02] MEDS ORDERED: LIDOCAINE HCL-MPF 1% 2ML VIAL IV PRN (08:15)
--- NOTE | 2020-04-02 08:55 | NUR ---
LANNY STARKEY MARINE CARGO SPECIALIST COORDINATED WITH NURSE ANNA AND RESPIRATORY THERAPIST MESSI. Pt CURRENTLY ON VENTILATOR AND PER RT, Pt NOT TOLERATING CUFF DEFLATION TRIALS WITHOUT DESATURATING. Pt AT HIGH RISK FOR ASPIRATION AT THIS TIME AND PMSV TRIALS WILL BEGIN WHEN PATIENT IS ABLE TO TOLERATE CUFF DEFLATION. MARINE CARGO SPECIALIST WILL FOLLOW Pt. Addendum: 04/02/[address] DANIEL LOW Amended: Links added.
[2020-04-02] MEDS: BUSPIRONE HCL 5 MG TABLET PO SCH ×2 (09:28→21:18)
[2020-04-02] MEDS: SERTRALINE HCL 50 MG TABLET PO SCH (09:28)
[2020-04-02] MEDS: FAMOTIDINE/PF 20 MG/2 ML VIAL IV SCH ×2 (09:28→21:18)
[2020-04-02] MEDS: POTASSIUM CHLORIDE 10% ELIXIR 20 MEQ/15 ML UDCUP PO PRN (09:28)
[2020-04-02] MEDS: ENOXAPARIN SODIUM 40 MG/0.4 ML SYRINGE SQ SCH (09:29)
--- NOTE | 2020-04-02 10:21 | NUR ---
RD NOTIFICATION - TUBE FEEDING Pt s/p intubation, s/p Trach, NGT in place. Recommend Continuous Tube Feeding Vital AF 1.2 initiated at 25 mls/hr for first 5 hours Increase rate as tolerated by 5 ml every 5 hours to goal Goal rate of 55mls/hr to provide 1584kcal, 99gm protein, 1071 mls free H2O Recommend Flushes: 185mls every 6 hours. Tube feeding Recs faxed to 2nd floor pod B (ext [phone]). Floor Sec notified. RD to continue to monitor. Please notify as additional nutrition concerns arise. Thank you. Addendum: 04/02/20 at [address] Amended: Links added.
[2020-04-02] MEDS: HYDROCODONE/ACETAMINOPHEN 5/325 MG TAB PO PRN ×2 (10:45→18:48)
--- NOTE | 2020-04-02 14:49 | NUR ---
DC PLAN RECEIVED [facility] ORDER. SPOKE TO NURSE, CM DIRECTOR AND SISTER. PATIENT AT 30%FIO2 S/P NEW TRACHE 03/31 STILL BEING VENTED AND WEANED. PENDING SPEECH RECOMMENDATIONS. ONCE STABLE AND REC RECEIVED CM WILL CONTINUE [facility] REFERRAL. Addendum: 04/02/20 at 1452 by REUBEN SORIANO RN CM Amended: Links added.
--- NOTE | 2020-04-02 15:30 | NUR ---
[facility] CONSULT PER PATIENT'S NURSE ANNA, NO OPEN WOUNDS OR SKIN BREAKDOWN PRESENT; NO [facility] RECOMMENDATIONS SUBMITTED AT THIS TIME. Addendum: 04/03/20 at 0809 by HANSA DEVINE LVN Amended: Links added.
[2020-04-02] MEDS ORDERED: VANCOMYCIN 1.75 GM in SODIUM CHLORIDE 0.9% 250 ML IV ONE (16:00)
[2020-04-03] VITALS (22 sets, daily range): BP systolic 116–143; BP diastolic 51–84
[2020-04-03] MEDS: IPRATROPIUM/ALBUTEROL SULFATE 3 ML SOLUTION IH SCH ×5 (00:36→23:08)
[2020-04-03] MEDS: HYDROCODONE/ACETAMINOPHEN 5/325 MG TAB PO PRN ×4 (00:53→22:17)
[2020-04-03] MEDS: VANCOMYCIN 1GM+NS 250ML 250 ML IV SCH ×2 (01:59→14:00)
[2020-04-03 03:45] LABS: BASOPHILS % (AUTO) 0.3 % (0.0-5.0); EOSINOPHILS % (AUTO) 2.5 % (0.0-8.0); HEMATOCRIT 34.8 % (42-54); LYMPHOCYTES % (AUTO) 10.5 % (21.0-51.0); MEAN CORPUSCULAR HEMOGLOBIN 27.9 pg (27.0-33.0); MEAN CORPUSCULAR HGB CONC 28.7 g/dL (32.0-36.0); MEAN CORPUSCULAR VOLUME 96.9 fL (79-99); MONOCYTES % (AUTO) 11.3 % (3.0-13.0); PLATELET COUNT (AUTO) 154 K/uL (130-400); RED BLOOD CELL COUNT(AUTO) 3.59 MIL/uL (4.50-6.20); RED CELL DISTRIBUTION WIDTH 13.4 % (11.0-15.5); WHITE BLOOD COUNT (AUTO) 6.7 K/uL (4.8-10.8)
[2020-04-03 04:03] LABS: ALBUMIN 2.4 g/dL (3.5-5.0); BILIRUBIN,TOTAL 0.4 mg/dL (0.2-1.0); CREATININE 1.2 mg/dL (0.5-1.5); MAGNESIUM 1.8 mg/dL (1.80-2.40); PHOSPHORUS 2.6 mg/dL (2.5-4.9); POTASSIUM 3.6 mmol/L (3.5-5.1); TOTAL PROTEIN, SERUM 5.6 g/dL (6.0-8.3)
[2020-04-03] MEDS: CEFTAZIDIME PENTAHYDRATE 1 GM/VIAL IVP SCH ×3 (06:42→22:16)
[2020-04-03] MEDS: MAGNESIUM 2GM PREMIX 50ML 50 ML IV PRN (07:49)
--- NOTE | 2020-04-03 08:40 | NUR ---
LANNY STARKEY EMISSIONS TECHNICIAN COORDINATED WITH NURSE CORTES AND RESPIRATORY THERAPIST FREDRICK. PER RT, THEY ARE STILL WORKING ON CUFF DEFLATION TRIALS. Pt AT HIGH RISK FOR ASPIRATION AT THIS TIME AND PMSV TRIALS WILL BEGIN WHEN PATIENT IS ABLE TO TOLERATE CUFF DEFLATION. EMISSIONS TECHNICIAN WILL FOLLOW Pt. Addendum: 04/03/[address] DANIEL LOW Amended: Links added.
[2020-04-03] MEDS: BUSPIRONE HCL 5 MG TABLET PO SCH ×2 (09:45→19:49)
[2020-04-03] MEDS: FAMOTIDINE/PF 20 MG/2 ML VIAL IV SCH ×2 (09:45→19:49)
[2020-04-03] MEDS: SERTRALINE HCL 50 MG TABLET PO SCH (09:45)
[2020-04-03] MEDS: ENOXAPARIN SODIUM 40 MG/0.4 ML SYRINGE SQ SCH (09:46)
[2020-04-03] MEDS ORDERED: VANCOMYCIN 1.75 GM in SODIUM CHLORIDE 0.9% 250 ML IV SCH (15:15)
--- NOTE | 2020-04-03 18:45 | NUR ---
ATTEMPTED TO CALL NEW CONSULT TO DR CADENA, BUT VOICE MAIL WAS FULL, UNABLE TO LEAVE MESSAGE, CALLED [phone] (FOR PEG PLACEMENT)
[2020-04-03] MEDS: ALPRAZOLAM 0.25 MG TABLET PO PRN (19:50)
[2020-04-04] VITALS (24 sets, daily range): BP systolic 115–160; BP diastolic 63–93
[2020-04-04] MEDS: VANCOMYCIN 1GM+NS 250ML 250 ML IV SCH ×2 (02:15→13:46)
[2020-04-04] MEDS: HYDROCODONE/ACETAMINOPHEN 5/325 MG TAB PO PRN ×4 (03:47→20:37)
[2020-04-04 04:10] LABS: BASOPHILS % (AUTO) 0.3 % (0.0-5.0); EOSINOPHILS % (AUTO) 3.3 % (0.0-8.0); HEMATOCRIT 34.9 % (42-54); LYMPHOCYTES % (AUTO) 12.9 % (21.0-51.0); MEAN CORPUSCULAR HGB CONC 29.2 g/dL (32.0-36.0); MEAN CORPUSCULAR VOLUME 95.9 fL (79-99); NEUTROPHILS % (AUTO) 71.1 % (40.0-77.0); PLATELET COUNT (AUTO) 166 K/uL (130-400); RED BLOOD CELL COUNT(AUTO) 3.64 MIL/uL (4.50-6.20); RED CELL DISTRIBUTION WIDTH 13.2 % (11.0-15.5); WHITE BLOOD COUNT (AUTO) 6.7 K/uL (4.8-10.8)
[2020-04-04 04:35] LABS: ALANINE AMINOTRANSFERASE 14 U/L (12-78); ALBUMIN 2.5 g/dL (3.5-5.0); ASPARTATE AMINOTRANSFERASE 14 U/L (10-37); BILIRUBIN,TOTAL 0.3 mg/dL (0.2-1.0); CARBON DIOXIDE 34 mmol/L (21-32); CHLORIDE 107 mmol/L (101-111); CREATININE 1.1 mg/dL (0.5-1.5); GLOMERULAR FILTR. RATE CALC 75 mL/min (>60); GLUCOSE,RANDOM 122 mg/dL (70-105); PHOSPHORUS 2.5 mg/dL (2.5-4.9); POTASSIUM 3.9 mmol/L (3.5-5.1); SODIUM SERUM 146 mmol/L (136-145); TOTAL PROTEIN, SERUM 5.6 g/dL (6.0-8.3); UREA NITROGEN, BLOOD 8 mg/dL (7-18)
[2020-04-04] MEDS: IPRATROPIUM/ALBUTEROL SULFATE 3 ML SOLUTION IH SCH ×4 (06:33→23:36)
[2020-04-04] MEDS: CEFTAZIDIME PENTAHYDRATE 1 GM/VIAL IVP SCH ×3 (06:43→23:34)
[2020-04-04] MEDS: FAMOTIDINE/PF 20 MG/2 ML VIAL IV SCH ×2 (08:17→20:36)
[2020-04-04] MEDS: BUSPIRONE HCL 5 MG TABLET PO SCH ×2 (08:17→20:36)
[2020-04-04] MEDS: SERTRALINE HCL 50 MG TABLET PO SCH (08:17)
[2020-04-04] MEDS: ENOXAPARIN SODIUM 40 MG/0.4 ML SYRINGE SQ SCH ×2 (08:18→16:28)
--- NOTE | 2020-04-04 08:19 | NUR ---
Held dose of Lovenox at this time, possible PEG placement today, pending Dr Brasher to return call
--- NOTE | 2020-04-04 11:00 | NUR ---
DR BARNARD'S OFFICE NOTIFIED PER PING PUBLIC ADDRESS TECHNICIAN ABOUT NEW CONSULT.
--- NOTE | 2020-04-04 12:20 | NUR ---
DC PLAN SPOKE TO DR. MELENDEZ SAID FINAL PLAN WILL BE DC TO [facility]. STILL PENDING DR. CADENA FOR PEG PLACEMENT. CM WILL CONTINUE TO FOLLOW. Addendum: 04/04/20 at 1221 by REUBEN SORIANO RN CM Amended: Links added.
--- NOTE | 2020-04-04 12:40 | NUR ---
DYSPHAGIA EVAL COMPLETED -S/S OF ASPIRATION WITH THIN LIQUIDS VIA SPOON AND ICE CHIPS. RECOMMEND NPO PENDING MBSS TO RULE OUT SILENT ASPIRATION BEFORE ANY P.O. INTAKE. ENVIRONMENTAL ATTORNEY COORDINATED WITH NURSE SOPHIA OF RESULTS AND RECOMMENDATIONS. Addendum: 04/04/[address] DANIEL LOW Amended: Links added.
--- NOTE | 2020-04-04 16:00 | NUR ---
SPOKE TO NAOMI AT DR CADENA OFFICE TO REMIND ABOUT PENDING CONSULT, PENDING MD TO RETURN CALL
[2020-04-05] VITALS (46 sets, daily range): BP systolic 115–153; BP diastolic 66–95
[2020-04-05] MEDS: VANCOMYCIN 1GM+NS 250ML 250 ML IV SCH (01:42)
[2020-04-05 03:56] LABS: BASOPHILS % (AUTO) 0.1 % (0.0-5.0); EOSINOPHILS % (AUTO) 2.8 % (0.0-8.0); HEMATOCRIT 33.7 % (42-54); LYMPHOCYTES % (AUTO) 10.3 % (21.0-51.0); MEAN CORPUSCULAR HGB CONC 29.7 g/dL (32.0-36.0); MEAN CORPUSCULAR VOLUME 94.4 fL (79-99); MONOCYTES % (AUTO) 11.6 % (3.0-13.0); NEUTROPHILS % (AUTO) 74.6 % (40.0-77.0); PLATELET COUNT (AUTO) 154 K/uL (130-400); RED BLOOD CELL COUNT(AUTO) 3.57 MIL/uL (4.50-6.20); WHITE BLOOD COUNT (AUTO) 7.2 K/uL (4.8-10.8)
[2020-04-05 04:07] LABS: INR 1.01 (0.85-1.15); PARTIAL THROMBOPLASTIN TIME 30.7 SEC (26.3-35.5); PROTHROMBIN TIME 10.9 SEC (9.6-11.6)
[2020-04-05 04:17] LABS: MAGNESIUM 2.1 mg/dL (1.80-2.40); PHOSPHORUS 2.6 mg/dL (2.5-4.9); POTASSIUM 3.6 mmol/L (3.5-5.1)
[2020-04-05] MEDS: CEFTAZIDIME PENTAHYDRATE 1 GM/VIAL IVP SCH ×3 (06:16→22:29)
[2020-04-05] MEDS: IPRATROPIUM/ALBUTEROL SULFATE 3 ML SOLUTION IH SCH ×4 (06:20→23:23)
[2020-04-05] MEDS ORDERED: COMPOUND IV REFRIGERATED 1 EACH IVSOLN MISC PRN (07:45)
[2020-04-05] MEDS ORDERED: EPINEPHRINE 1 MG/ML AMPULE ONE (07:48)
[2020-04-05] MEDS ORDERED: PROPOFOL 10 MG/ML 20ML VIAL IV ONE (07:48)
--- NOTE | 2020-04-05 08:00 | NUR ---
Dr Magdaleno at bedside to perform EGD/PEG placement, assisted per Endo staff x3
--- NOTE | 2020-04-05 08:05 | NUR ---
4 mg of versed IV administered per Davian, Nurse Anesthetists during PEG placement
[2020-04-05] MEDS ORDERED: MIDAZOLAM HCL 1 MG/ML 2ML VIAL ONE (08:07)
[2020-04-05] MEDS ORDERED: MIDAZOLAM HCL 1 MG/ML 2ML VIAL IVP SCH (08:15)
[2020-04-05] MEDS: FAMOTIDINE/PF 20 MG/2 ML VIAL IV SCH ×2 (08:28→21:21)
[2020-04-05] MEDS: ENOXAPARIN SODIUM 40 MG/0.4 ML SYRINGE SQ SCH (08:29)
--- NOTE | 2020-04-05 08:30 | NUR ---
AM dose of Lovenox held, patient had PEG placement this AM per Dr Evans
[2020-04-05] MEDS: VANCOMYCIN 1.25 GM in SODIUM CHLORIDE 0.9% 250 ML IV SCH ×2 (09:00→21:21)
[2020-04-05] MEDS: MORPHINE SULFATE 2 MG/ML 1ML SYG IVP PRN ×3 (11:11→21:22)
[2020-04-05] MEDS: ALPRAZOLAM 0.25 MG TABLET PO PRN (12:19)
[2020-04-05] MEDS: BUSPIRONE HCL 5 MG TABLET PO SCH ×2 (12:20→21:21)
[2020-04-05] MEDS: SERTRALINE HCL 50 MG TABLET PO SCH (12:20)
[2020-04-05] MEDS: HYDROCODONE/ACETAMINOPHEN 5/325 MG TAB PO PRN (12:20)
--- NOTE | 2020-04-05 15:26 | NUR ---
DC PLAN PATIENT HAD PEG PLACED 04/05. S/P TRACHE 03/31. PACKET COMPLETED INFO SENT TO [facility]. SPOKE TO POA GAVE UPDATE. ROSMERY WILL CONTINUE TO FOLLOW. Addendum: 04/05/20 at 1527 by REUBEN SORIANO RN CM Amended: Links added.
--- NOTE | 2020-04-05 19:30 | NUR ---
ASSESSMENT PT SITTING UP IN CHAIR. C/O CHRONIC BACK PAIN, 5/10 ON PAIN SCALE. AAOX3, COOPERATIVE, FOLLOWS COMMANDS, CALL JJ WITHIN REACH. ASSESSMENT COMPLETED, SEE FLOW SHEET.
[2020-04-06] VITALS (18 sets, daily range): BP systolic 110–153; BP diastolic 67–95
--- NOTE | 2020-04-06 03:44 | NUR ---
ASSESSMENT PT RESTING QUIETLY IN BED. NO DISTRESS NOTED. CONTINUES TO COMPLAIN OF CHRONIC PAIN. ASSESSMENT COMPLETED SEE FLOW SHEET.
[2020-04-06] MEDS: MORPHINE SULFATE 2 MG/ML 1ML SYG IVP PRN (03:54)
[2020-04-06 04:15] LABS: HEMATOCRIT 33.8 % (42-54); MEAN CORPUSCULAR HEMOGLOBIN 27.8 pg (27.0-33.0); MEAN CORPUSCULAR HGB CONC 29.9 g/dL (32.0-36.0); MEAN CORPUSCULAR VOLUME 93.1 fL (79-99); RED BLOOD CELL COUNT(AUTO) 3.63 MIL/uL (4.50-6.20); WHITE BLOOD COUNT (AUTO) 7.7 K/uL (4.8-10.8)
[2020-04-06 05:26] LABS: ALANINE AMINOTRANSFERASE 14 U/L (12-78); ALBUMIN 2.3 g/dL (3.5-5.0); ASPARTATE AMINOTRANSFERASE 14 U/L (10-37); BILIRUBIN,TOTAL 0.4 mg/dL (0.2-1.0); CARBON DIOXIDE 33 mmol/L (21-32); CHLORIDE 100 mmol/L (101-111); CREATININE 0.9 mg/dL (0.5-1.5); GLOMERULAR FILTR. RATE CALC 95 mL/min (>60); GLUCOSE,RANDOM 94 mg/dL (70-105); PHOSPHORUS 2.5 mg/dL (2.5-4.9); POTASSIUM 3.4 mmol/L (3.5-5.1); SODIUM SERUM 141 mmol/L (136-145); TOTAL PROTEIN, SERUM 5.6 g/dL (6.0-8.3); UREA NITROGEN, BLOOD 7 mg/dL (7-18)
[2020-04-06] MEDS: CEFTAZIDIME PENTAHYDRATE 1 GM/VIAL IVP SCH ×2 (06:15→14:52)
[2020-04-06] MEDS: IPRATROPIUM/ALBUTEROL SULFATE 3 ML SOLUTION IH SCH ×2 (06:38→11:24)
[2020-04-06] MEDS: BUSPIRONE HCL 5 MG TABLET PO SCH (08:43)
[2020-04-06] MEDS: SERTRALINE HCL 50 MG TABLET PO SCH (08:43)
[2020-04-06] MEDS: ENOXAPARIN SODIUM 40 MG/0.4 ML SYRINGE SQ SCH (08:43)
[2020-04-06] MEDS: POTASSIUM CHLORIDE 10% ELIXIR 20 MEQ/15 ML UDCUP PO PRN ×2 (08:44→10:59)
[2020-04-06] MEDS: FAMOTIDINE/PF 20 MG/2 ML VIAL IV SCH (08:44)
[2020-04-06] MEDS: MAGNESIUM 2GM PREMIX 50ML 50 ML IV PRN (08:45)
[2020-04-06] MEDS ORDERED: METOPROLOL TARTRATE 25 MG TAB PO SCH (09:00)
--- NOTE | 2020-04-06 10:39 | NUR ---
RADHA FOLLOW UP Pt s/p PEG placement. Current Tube Feeding is Vital High Protein @20mls/hr, as per EMR. Current nutrition:480 kcal, 42gm protein. Nutrition needs: 73-88gm protein, 1500-1900kcal. No report of GI distress. LBM 04/05/20. Noted, 4+ pitting edema. Tube feeding recommendations previously provided. Recommend Increase rate as tolerated by 5 ml every 5 hours to goal Goal rate=55mls/hr to provide 1584kcal, 99gm protein, 1071 mls free H2O Recommend Fluid Restriction 1200mL/day secondary to severe fluid retention. Addendum: 04/06/20 at [address] RD Amended: Links added.
[2020-04-06] MEDS: VANCOMYCIN 1.25 GM in SODIUM CHLORIDE 0.9% 250 ML IV SCH (10:59)
[2020-04-06] MEDS: HYDROCODONE/ACETAMINOPHEN 5/325 MG TAB PO PRN (11:08)
--- NOTE | 2020-04-06 12:25 | NUR ---
DC PLAN SPOKE TO TARYN SAID PATIENT ACCEPTED. LET KNOW MOT AND COVID FORM SIGNED IN CHART. EMS SET UP NEW TRACHE/PEG ON VENT 28%. LET NURSE KNOW. Addendum: 04/06/20 at 1227 by REUBEN SORIANO RN CM Amended: Links added.
[2020-04-06] MEDS: ALPRAZOLAM 0.25 MG TABLET PO PRN (12:57)
--- NOTE | 2020-04-06 14:49 | NUR ---
REPORT REPORT GIVEN TO [facility] AT THIS TIME. EMS MADE AWARE OF PATIENT READY TO BE TRANSPORTED TO [facility], AND VENT TO BE SENT FOR TRANSFER.
--- NOTE | 2020-04-06 17:17 | NUR ---
V TACH MADE AWARE OF PATIENT'S 7 BEATS OF V TACH. ORDERS FOR MAG AND POTASSIUM ORDERED STAT.
--- NOTE | 2020-04-06 17:30 | NUR ---
DISCHARGE PATIENT TAKEN BY EMS AT THIS TIME. KIERAN DIEGO FROM [facility] MADE AWARE THAT PATIENT HAD 7 BEAT V TACH AND TO RECHECK POTASSIUM AND MAGNESIUM ON ARRIVAL. DR. MELENDEZ MADE AWARE OF V TACH, STATED TO RECHECK LABS.
== END 2020-04-06 17:31 | DRG 4 ==
LOC: EDH 21:08 → EDHIP 03-29 01:26 → 2CH 03-29 03:27 → EDHIP 03-29 03:46 → 2BH 03-29 15:24
PROVIDERS: ADMIT Internal Medicine; ATTEND Internal Medicine
PROC: 0BH17EZ Insertion of Endotracheal Airway into Trachea, Via Natural or Artificial Opening (ICD-10-PCS; 2020-03-29)
PROC: 0B9D8ZX Drainage of Right Middle Lung Lobe, Via Natural or Artificial Opening Endoscopic, Diagnostic (ICD-10-PCS; 2020-03-30)
PROC: 5A1955Z Respiratory Ventilation, Greater than 96 Consecutive Hours (ICD-10-PCS; 2020-03-31)
PROC: 0B110F4 Bypass Trachea to Cutaneous with Tracheostomy Device, Open Approach (ICD-10-PCS; principal; 2020-03-31 11:45)
PROC: 0DH63UZ Insertion of Feeding Device into Stomach, Percutaneous Approach (ICD-10-PCS; 2020-04-05)
PROC: 5A09357 Assistance with Respiratory Ventilation, Less than 24 Consecutive Hours, Continuous Positive Airway Pressure (ICD-10-PCS; 2020-04-06)
DX: J96.22 Acute and chronic respiratory failure with hypercapnia (principal); J15.6 Pneumonia due to other Gram-negative bacteria; Q33.6 Congenital hypoplasia and dysplasia of lung; I50.33 Acute on chronic diastolic (congestive) heart failure; J44.0 Chronic obstructive pulmonary disease with (acute) lower respiratory infection; E87.1 Hypo-osmolality and hyponatremia; E87.0 Hyperosmolality and hypernatremia; E87.2 Acidosis; Z99.11 Dependence on respirator [ventilator] status; J96.21 Acute and chronic respiratory failure with hypoxia; F41.1 Generalized anxiety disorder; I27.81 Cor pulmonale (chronic); I48.91 Unspecified atrial fibrillation; K76.0 Fatty (change of) liver, not elsewhere classified; Z68.35 Body mass index [BMI] 35.0-35.9, adult; E86.1 Hypovolemia; Z20.828 Contact with and (suspected) exposure to other viral communicable diseases; D64.9 Anemia, unspecified; E66.01 Morbid (severe) obesity due to excess calories; E78.5 Hyperlipidemia, unspecified; E83.42 Hypomagnesemia; E87.6 Hypokalemia; G47.33 Obstructive sleep apnea (adult) (pediatric); G70.9 Myoneural disorder, unspecified; G89.29 Other chronic pain; I11.0 Hypertensive heart disease with heart failure; I25.10 Atherosclerotic heart disease of native coronary artery without angina pectoris; J98.4 Other disorders of lung; E11.9 Type 2 diabetes mellitus without complications; K59.00 Constipation, unspecified; M41.9 Scoliosis, unspecified; R13.12 Dysphagia, oropharyngeal phase; Z43.0 Encounter for attention to tracheostomy; Z79.4 Long term (current) use of insulin; Z79.891 Long term (current) use of opiate analgesic; Z91.19 Patient's noncompliance with other medical treatment and regimen; Z88.8 Allergy status to other drugs, medicaments and biological substances; Z82.3 Family history of stroke; Z83.3 Family history of diabetes mellitus; Z82.5 Family history of asthma and other chronic lower respiratory diseases; Z82.0 Family history of epilepsy and other diseases of the nervous system; Z82.49 Family history of ischemic heart disease and other diseases of the circulatory system
CPT/HCPCS: 31500; 31622; 36415; 36600; 43246; 71045; 71250; 80048; 80053; 80202; 80305; 81001; 82435; 82550; 82728; 82803; 82947; 82948; 83036; 83605; 83615; 83735; 83874; 83880; 84100; 84132; 84145; 84295; 84484; 85018; 85025; 85027; 85378; 85610; 85730; 86140; 87040; 87071; 87205; 87486; 87581; 87633; 87798; 87804; 88112; 88305; 88312; 92610; 93005; 93970; 94002; 94003; 94640; 94660; 94664; 97039; 99291; 99292; G0378; G0480; J0171; J0330; J0456; J0696; J0713; J1200; J1650; J1940; J2250; J2704; J2920; J2930; J3010; J3370; J3475; J3480; J3490; J7030; J7050; J7070

== ENCOUNTER 2020-10-27 18:16 | Inpatient (IN) | payer MEDICARE ==
[~2020-10-27 18:16] MED LIST changes: +ASCO120C2 PO; +BENZ-70 PO; -BENZONATE PO; -CANA1TAB4 PO; +EMPA25TA PO; -FURO20TA4 PO; +FURO40TA5 PO; +GABA-529 PO; -GABA-531 PO; +GLIM1TAB18 PO; -HYDR-4060 PO; +HYDR-4064 PO; -INSU3INS9 SQ; -LINA290C PO; +LUBI24CA2 PO; +METH4TAB3 PO; +METO10TA3 PO; +METO25TA6 PO; -METOPROLOL PO; +MONT-39 PO; -MONT10TA26 PO; -PRED20TA3 PO; +SERT-440 PO; +SUCR1TAB2 PO; +THEO400T3 PO; -THEOPHYLLINE PO; -TIOT18CA3 IH
[2020-10-27 18:48] LABS: BASOPHILS % (AUTO) 0.2 % (0.0-5.0); HEMATOCRIT 39.1 % (42-54); LYMPHOCYTES % (AUTO) 10.5 % (21.0-51.0); MEAN CORPUSCULAR HEMOGLOBIN 27.8 pg (27.0-33.0); MEAN CORPUSCULAR HGB CONC 29.2 g/dL (32.0-36.0); MEAN CORPUSCULAR VOLUME 95.4 fL (79-99); MONOCYTES % (AUTO) 10.2 % (3.0-13.0); PLATELET COUNT (AUTO) 252 K/uL (130-400); RED CELL DISTRIBUTION WIDTH 13.9 % (11.0-15.5); WHITE BLOOD COUNT (AUTO) 13.3 K/uL (4.8-10.8)
[2020-10-27 18:57] LABS: INR 0.99 (0.85-1.15); PROTHROMBIN TIME 10.6 SEC (9.6-11.6)
[2020-10-27 18:58] LABS: PARTIAL THROMBOPLASTIN TIME 23.7 SEC (26.3-35.5)
[2020-10-27 19:04] LABS: CHLORIDE 99 mmol/L (101-111); CREATININE 0.7 mg/dL (0.5-1.5); GLOMERULAR FILTR. RATE CALC 126 mL/min (>60); GLUCOSE,RANDOM 114 mg/dL (70-105); POTASSIUM 3.9 mmol/L (3.5-5.1); SODIUM SERUM 146 mmol/L (136-145); UREA NITROGEN, BLOOD 18 mg/dL (7-18)
[2020-10-27 19:10] LABS: APPEARANCE,URINE Clear (CLEAR); BILIRUBIN,URINE Negative (NEGATIVE); COLOR,URINE Yellow (YELLOW); GLUCOSE, URINE (UA) >=1000 mg/dL (NEGATIVE); KETONES,URINE Trace mg/dL (NEGATIVE); LEUKOCYTE ESTERASE ,URINE Negative (NEGATIVE); NITRATE,URINE Negative (NEGATIVE); OCCULT BLOOD,URINE Negative (NEGATIVE); PROTEIN,URINE Negative (NEGATIVE); UROBILINOGEN,URINE 0.2 mg/dL (0.2-1.0)
[2020-10-27 19:17] LABS: ALANINE AMINOTRANSFERASE 14 U/L (12-78); ALBUMIN 3.5 g/dL (3.5-5.0); ASPARTATE AMINOTRANSFERASE 16 U/L (10-37); BILIRUBIN,TOTAL 0.2 mg/dL (0.2-1.0); CREATINE KINASE, TOTAL 47 U/L (21-232); TOTAL PROTEIN, SERUM 6.6 g/dL (6.0-8.3); TROPONIN I < 0.04 ng/mL (0.00-0.06)
[2020-10-27 19:33] LABS: CARBON DIOXIDE > 45 mmol/L (21-32)
[2020-10-27 19:53] LABS: MYOGLOBIN 34 ng/mL (10-92)
[2020-10-27] MEDS ORDERED: CEFTRIAXONE 1G VIAL ONE (20:03)
[2020-10-27] MEDS ORDERED: AZITHROMYCIN 500MG+NS 250ML 250 ML IV ONE (20:03)
[2020-10-27 20:19] LABS: WBC,URINE 0-1 /HPF (0-1)
[2020-10-27 20:20] LABS: BACTERIA,URINE Rare /HPF (None Seen); SQUAMOUS EPITHELIAL CELL,UR Rare /HPF (0-2)
[2020-10-27] MEDS ORDERED: SOLU-MEDROL 40MG VIAL ONE (22:27)
[2020-10-28] MEDS ORDERED: ACETAMINOPHEN 325 MG TAB PO PRN (03:15)
[2020-10-28] MEDS ORDERED: TRAMADOL HCL 50 MG TABLET PO PRN (03:15)
[2020-10-28] MEDS ORDERED: HYDROCODONE/ACETAMINOPHEN 7.5/325 MG TAB PO PRN (03:15)
[2020-10-28] MEDS ORDERED: ONDANSETRON 4MG INJ IVP PRN (03:15)
[2020-10-28 03:22] LABS: BASOPHILS % (AUTO) 0.2 % (0.0-5.0); HEMATOCRIT 41.7 % (42-54); LYMPHOCYTES % (AUTO) 4.7 % (21.0-51.0); MEAN CORPUSCULAR HEMOGLOBIN 27.8 pg (27.0-33.0); MEAN CORPUSCULAR HGB CONC 28.1 g/dL (32.0-36.0); MONOCYTES % (AUTO) 3.4 % (3.0-13.0); NEUTROPHILS % (AUTO) 90.8 % (40.0-77.0); PLATELET COUNT (AUTO) 208 K/uL (130-400); RED BLOOD CELL COUNT(AUTO) 4.21 MIL/uL (4.50-6.20); RED CELL DISTRIBUTION WIDTH 13.6 % (11.0-15.5); WHITE BLOOD COUNT (AUTO) 12.9 K/uL (4.8-10.8)
[2020-10-28 03:32] LABS: ALBUMIN 3.6 g/dL (3.5-5.0); BILIRUBIN,TOTAL 0.2 mg/dL (0.2-1.0); CREATININE 0.8 mg/dL (0.5-1.5); POTASSIUM 4.7 mmol/L (3.5-5.1); TOTAL PROTEIN, SERUM 6.6 g/dL (6.0-8.3)
[2020-10-28 03:39] LABS: ABG BASE EXCESS 13.7 mmol/L (-2.0-3.0); ABG HCO3 48.6 mmol/L (21.0-28.0); ABG OXYGEN SATURATION 89.4 % (95.0-99.0); ABG PCO2 134 mmHg (35-48)
[2020-10-28] MEDS ORDERED: ALBUTEROL INHALER 90MCG/INH IH SCH (06:00)
[2020-10-28] MEDS ORDERED: SOLU-MEDROL 40MG VIAL IVP SCH (06:00)
[2020-10-28] MEDS ORDERED: SOLU-MEDROL 40MG VIAL ONE (07:36)
[2020-10-28] MEDS ORDERED: CEFTRIAXONE 1G VIAL IVP SCH (09:00)
[2020-10-28] MEDS ORDERED: AZITHROMYCIN 500MG+NS 250ML 250 ML IV SCH (09:00)
[2020-10-28 09:56] LABS: ABG BASE EXCESS 18.1 mmol/L (-2.0-3.0); ABG HCO3 51.8 mmol/L (21.0-28.0); ABG OXYGEN SATURATION 93.3 % (95.0-99.0); ABG PCO2 118 mmHg (35-48)
== END 2020-10-28 11:36 | disposition left against medical advice (07) | DRG 194 ==
LOC: EDH 18:16 → EDHIP 20:30
PROVIDERS: ADMIT Internal Medicine; ATTEND Internal Medicine
DX: J18.1 Lobar pneumonia, unspecified organism (principal); J44.0 Chronic obstructive pulmonary disease with (acute) lower respiratory infection; F41.9 Anxiety disorder, unspecified; E11.9 Type 2 diabetes mellitus without complications; I10 Essential (primary) hypertension; Z20.822 Contact with and (suspected) exposure to COVID-19; Z53.29 Procedure and treatment not carried out because of patient's decision for other reasons; Z88.8 Allergy status to other drugs, medicaments and biological substances; Z79.899 Other long term (current) drug therapy
CPT/HCPCS: 36415; 36600; 71045; 71250; 80053; 81001; 82550; 82803; 83605; 83874; 83880; 84145; 84484; 85025; 85378; 85610; 85730; 86900; 86901; 87040; 87088; 87426; 93005; G0378; J0456; J0696; J2920; U0003

== ENCOUNTER 2020-11-02 09:51 | Inpatient (IN) | payer MEDICARE ==
[~2020-11-02] VITALS: Ht 167.6 cm; Wt 99.8 kg
[2020-11-02 10:19] LABS: BASOPHILS % (AUTO) 0.2 % (0.0-5.0); HEMATOCRIT 44.7 % (42-54); LYMPHOCYTES % (AUTO) 7.7 % (21.0-51.0); MEAN CORPUSCULAR HEMOGLOBIN 27.6 pg (27.0-33.0); MEAN CORPUSCULAR HGB CONC 27.5 g/dL (32.0-36.0); MEAN CORPUSCULAR VOLUME 100.2 fL (79-99); MONOCYTES % (AUTO) 8.6 % (3.0-13.0); NEUTROPHILS % (AUTO) 81.5 % (40.0-77.0); PLATELET COUNT (AUTO) 200 K/uL (130-400); RED BLOOD CELL COUNT(AUTO) 4.46 MIL/uL (4.50-6.20); RED CELL DISTRIBUTION WIDTH 13.7 % (11.0-15.5); WHITE BLOOD COUNT (AUTO) 13.4 K/uL (4.8-10.8)
[2020-11-02 10:28] LABS: INR 1.02 (0.85-1.15); PROTHROMBIN TIME 10.9 SEC (9.6-11.6)
[2020-11-02] MEDS ORDERED: ALBUTEROL INHALER 90MCG/INH IH ONE (10:28)
[2020-11-02 10:29] LABS: PARTIAL THROMBOPLASTIN TIME 23.8 SEC (26.3-35.5)
[2020-11-02 10:30] LABS: CHLORIDE 95 mmol/L (101-111); CREATININE 0.7 mg/dL (0.5-1.5); GLOMERULAR FILTR. RATE CALC 126 mL/min (>60); GLUCOSE,RANDOM 198 mg/dL (70-105); POTASSIUM 3.9 mmol/L (3.5-5.1); SODIUM SERUM 146 mmol/L (136-145); UREA NITROGEN, BLOOD 11 mg/dL (7-18)
[2020-11-02 10:31] LABS: CARBON DIOXIDE > 45 mmol/L (21-32)
[2020-11-02 10:31] LABS: ABG BASE EXCESS 27.7 mmol/L (-2.0-3.0); ABG HCO3 63.9 mmol/L (21.0-28.0); ABG OXYGEN SATURATION 97.4 % (95.0-99.0); ABG PCO2 144 mmHg (35-48)
[2020-11-02 10:35] LABS: ALANINE AMINOTRANSFERASE 17 U/L (12-78); ALBUMIN 3.7 g/dL (3.5-5.0); ASPARTATE AMINOTRANSFERASE 9 U/L (10-37); BILIRUBIN,TOTAL 0.3 mg/dL (0.2-1.0); TOTAL PROTEIN, SERUM 7.1 g/dL (6.0-8.3)
[2020-11-02 10:55] LABS: APPEARANCE,URINE Clear (CLEAR); BILIRUBIN,URINE Negative (NEGATIVE); COLOR,URINE Yellow (YELLOW); GLUCOSE, URINE (UA) >=1000 mg/dL (NEGATIVE); KETONES,URINE 15 mg/dL (NEGATIVE); LEUKOCYTE ESTERASE ,URINE Negative (NEGATIVE); NITRATE,URINE Negative (NEGATIVE); OCCULT BLOOD,URINE Negative (NEGATIVE); PROTEIN,URINE Negative (NEGATIVE); UROBILINOGEN,URINE 0.2 mg/dL (0.2-1.0)
[2020-11-02] MEDS ORDERED: ZOSYN 3.375GM+NS 50ML 50 ML IV ONE (11:20)
[2020-11-02 11:45] LABS: BACTERIA,URINE Rare /HPF (None Seen); RBC,URINE 0-1 /HPF (0-1); SQUAMOUS EPITHELIAL CELL,UR Rare /HPF (0-2); WBC,URINE 0-1 /HPF (0-1)
[2020-11-02] MEDS ORDERED: VANCOMYCIN 1G 1.5 GM in 0.9% NACL 250ML 250 ML IV SCH (12:00)
[2020-11-02] MEDS ORDERED: ACETAMINOPHEN 500 MG TABLET ONE (13:03)
[2020-11-02] MEDS ORDERED: MORPHINE 2 MG SYG IVP ONE (16:45)
[2020-11-02] MEDS ORDERED: ALBUTEROL INHALER 90MCG/INH IH PRN (16:45)
[2020-11-02] MEDS: ZOSYN 3.375GM+NS 50ML 50 ML IV SCH (16:45)
[2020-11-02] MEDS ORDERED: LOPERAMIDE HCL 2 MG CAP PO PRN (16:45)
[2020-11-02] MEDS ORDERED: HYDRALAZINE 20MG/ML VIAL IV PRN (16:45)
[2020-11-02] MEDS ORDERED: LACTULOSE 20 GM/30 ML UDCUP PO PRN (16:45)
[2020-11-02] MEDS ORDERED: MORPHINE 2 MG SYG ONE (22:15)
[2020-11-03] VITALS (16 sets, daily range): BP systolic 124–200; BP diastolic 72–93
[2020-11-03] MEDS ORDERED: ACETAMINOPHEN WITH CODEINE 1 TAB TAB ONE (04:55)
[2020-11-03] MEDS ORDERED: ZOSYN 3.375GM+NS 50ML 50 ML IV ONE ×2 (04:59→16:34)
[2020-11-03 05:03] LABS: BASOPHILS % (AUTO) 0.3 % (0.0-5.0); EOSINOPHILS % (AUTO) 0.3 % (0.0-8.0); HEMATOCRIT 41.9 % (42-54); LYMPHOCYTES % (AUTO) 6.5 % (21.0-51.0); MEAN CORPUSCULAR HEMOGLOBIN 27.3 pg (27.0-33.0); MEAN CORPUSCULAR HGB CONC 26.7 g/dL (32.0-36.0); MEAN CORPUSCULAR VOLUME 102.2 fL (79-99); MONOCYTES % (AUTO) 8.4 % (3.0-13.0); NEUTROPHILS % (AUTO) 83.6 % (40.0-77.0); PLATELET COUNT (AUTO) 198 K/uL (130-400); RED CELL DISTRIBUTION WIDTH 13.4 % (11.0-15.5); WHITE BLOOD COUNT (AUTO) 14.7 K/uL (4.8-10.8)
[2020-11-03 05:33] LABS: ALBUMIN 3.5 g/dL (3.5-5.0); BILIRUBIN,TOTAL 0.5 mg/dL (0.2-1.0); CREATININE 0.7 mg/dL (0.5-1.5); MAGNESIUM 2.2 mg/dL (1.80-2.40); PHOSPHORUS 2.7 mg/dL (2.5-4.9); POTASSIUM 4.5 mmol/L (3.5-5.1); TOTAL PROTEIN, SERUM 7.1 g/dL (6.0-8.3)
[2020-11-03 08:42] LABS: ABG BASE EXCESS 8.4 mmol/L (-2.0-3.0); ABG HCO3 39.9 mmol/L (21.0-28.0); ABG OXYGEN SATURATION 88.5 % (95.0-99.0); ABG PCO2 93 mmHg (35-48)
[2020-11-03] MEDS ORDERED: FUROSEMIDE 40 MG TABLET ONE (08:50)
[2020-11-03] MEDS ORDERED: ATORVASTATIN 10 MG TABLET ONE (08:50)
[2020-11-03] MEDS ORDERED: ASPIRIN 81MG CHEW TAB ONE (08:50)
[2020-11-03] MEDS ORDERED: BENZONATATE 100 MG CAPSULE PO ONE (08:51)
[2020-11-03] MEDS ORDERED: SIMETHICONE 80 MG TAB.CHEW ONE (08:51)
[2020-11-03] MEDS ORDERED: METOPROLOL TARTRATE 25 MG TAB ONE (08:52)
[2020-11-03] MEDS ORDERED: METOCLOPRAMIDE 10 MG TABLET ONE (08:52)
[2020-11-03] MEDS ORDERED: GABAPENTIN 300 MG CAPSULE ONE (08:53)
[2020-11-03] MEDS ORDERED: FAMOTIDINE 20MG VIAL IV ONE (08:54)
[2020-11-03] MEDS: ATORVASTATIN 10 MG TABLET PO SCH (09:00)
[2020-11-03] MEDS: GABAPENTIN 300 MG CAPSULE PO SCH ×3 (09:00→21:48)
[2020-11-03] MEDS: METOPROLOL TARTRATE 25 MG TAB PO SCH ×2 (09:00→21:48)
[2020-11-03] MEDS: BENZONATATE 100 MG CAPSULE PO SCH (09:00)
[2020-11-03] MEDS: METOCLOPRAMIDE 10 MG TABLET PO SCH (09:00)
[2020-11-03] MEDS: FAMOTIDINE 20MG TAB PO SCH ×2 (09:00→21:48)
[2020-11-03] MEDS: FUROSEMIDE 40 MG TABLET PO SCH ×2 (09:00→21:48)
[2020-11-03] MEDS: SIMETHICONE 80 MG TAB.CHEW PO SCH ×2 (09:00→21:48)
[2020-11-03] MEDS: ASPIRIN 81MG CHEW TAB PO SCH (09:00)
[2020-11-03] MEDS: SUCRALFATE 1 GM TABLET PO SCH ×2 (11:30→17:00)
[2020-11-03] MEDS: ZOSYN 3.375GM+NS 50ML 50 ML IV SCH (16:45)
[2020-11-03] MEDS: LUBIPROSTONE 24 MCG CAP PO SCH (17:00)
[2020-11-03] MEDS: MONTELUKAST SODIUM 10 MG TAB PO SCH (21:49)
[2020-11-04] VITALS (27 sets, daily range): BP systolic 104–161; BP diastolic 50–102
[2020-11-04] MEDS: ZOSYN 3.375GM+NS 50ML 50 ML IV SCH ×3 (02:01→17:03)
[2020-11-04 04:22] LABS: ABG BASE EXCESS 19.1 mmol/L (-2.0-3.0); ABG HCO3 54.3 mmol/L (21.0-28.0); ABG OXYGEN SATURATION 66.4 % (95.0-99.0); ABG PCO2 137 mmHg (35-48)
[2020-11-04 04:30] LABS: BASOPHILS % (AUTO) 0.1 % (0.0-5.0); EOSINOPHILS % (AUTO) 0.1 % (0.0-8.0); HEMATOCRIT 42.1 % (42-54); LYMPHOCYTES % (AUTO) 3.7 % (21.0-51.0); MEAN CORPUSCULAR HEMOGLOBIN 27.4 pg (27.0-33.0); MEAN CORPUSCULAR HGB CONC 26.4 g/dL (32.0-36.0); MONOCYTES % (AUTO) 9.7 % (3.0-13.0); NEUTROPHILS % (AUTO) 85.1 % (40.0-77.0); PLATELET COUNT (AUTO) 180 K/uL (130-400); RED BLOOD CELL COUNT(AUTO) 4.05 MIL/uL (4.50-6.20); RED CELL DISTRIBUTION WIDTH 13.4 % (11.0-15.5)
[2020-11-04 04:49] LABS: ALBUMIN 3.4 g/dL (3.5-5.0); BILIRUBIN,TOTAL 0.5 mg/dL (0.2-1.0); CREATININE 0.8 mg/dL (0.5-1.5); MAGNESIUM 2.7 mg/dL (1.80-2.40); PHOSPHORUS 3.4 mg/dL (2.5-4.9); POTASSIUM 4.5 mmol/L (3.5-5.1); TOTAL PROTEIN, SERUM 6.9 g/dL (6.0-8.3)
[2020-11-04 05:10] LABS: ABG BASE EXCESS 22.2 mmol/L (-2.0-3.0); ABG HCO3 58.5 mmol/L (21.0-28.0); ABG OXYGEN SATURATION 95.9 % (95.0-99.0); ABG PCO2 151 mmHg (35-48)
[2020-11-04] MEDS: LUBIPROSTONE 24 MCG CAP PO SCH ×2 (08:00→17:00)
[2020-11-04] MEDS: SUCRALFATE 1 GM TABLET PO SCH ×3 (08:30→17:00)
[2020-11-04] MEDS: ATORVASTATIN 10 MG TABLET PO SCH (09:35)
[2020-11-04] MEDS: ASPIRIN 81MG CHEW TAB PO SCH (09:35)
[2020-11-04] MEDS: FUROSEMIDE 40 MG TABLET PO SCH (09:35)
[2020-11-04] MEDS: METOPROLOL TARTRATE 25 MG TAB PO SCH ×2 (09:36→21:00)
[2020-11-04] MEDS: SIMETHICONE 80 MG TAB.CHEW PO SCH ×2 (09:36→21:00)
[2020-11-04] MEDS: GABAPENTIN 300 MG CAPSULE PO SCH ×3 (09:36→21:00)
[2020-11-04] MEDS: BENZONATATE 100 MG CAPSULE PO SCH (09:37)
[2020-11-04] MEDS: METOCLOPRAMIDE 10 MG TABLET PO SCH (09:37)
[2020-11-04] MEDS: FAMOTIDINE 20MG TAB PO SCH ×2 (09:37→21:00)
[2020-11-04] MEDS: ACETAMINOPHEN WITH CODEINE 1 TAB TAB PO PRN ×2 (09:39→14:37)
[2020-11-04] MEDS ORDERED: ZIPRASIDONE MESYLATE 20 MG/VIAL IM PRN ×5 (12:00→20:45)
[2020-11-04] MEDS: HEPARIN 5,000 UNIT VIAL SQ SCH (14:45)
[2020-11-04] MEDS: FUROSEMIDE 40MG VIAL IV SCH (16:10)
[2020-11-04] MEDS: DOXYCYCLINE 100MG+NS 250ML 250 ML IV SCH (16:11)
[2020-11-04] MEDS: MONTELUKAST SODIUM 10 MG TAB PO SCH (21:00)
[2020-11-04] MEDS: OSELTAMIVIR PHOSPHATE 75 MG CAP PO SCH (21:00)
[2020-11-04] MEDS: SOLU-MEDROL 40MG VIAL IVP SCH (21:00)
[2020-11-05] VITALS (24 sets, daily range): BP systolic 119–149; BP diastolic 63–94
[2020-11-05] MEDS: ZOSYN 3.375GM+NS 50ML 50 ML IV SCH ×3 (00:53→18:04)
[2020-11-05] MEDS: HEPARIN 5,000 UNIT VIAL SQ SCH ×3 (01:20→15:27)
[2020-11-05] MEDS: FUROSEMIDE 40MG VIAL IV SCH ×2 (02:56→13:51)
[2020-11-05 03:26] LABS: HEMATOCRIT 37.5 % (42-54); MEAN CORPUSCULAR HEMOGLOBIN 28.2 pg (27.0-33.0); MEAN CORPUSCULAR HGB CONC 27.5 g/dL (32.0-36.0); MEAN CORPUSCULAR VOLUME 102.7 fL (79-99); RED BLOOD CELL COUNT(AUTO) 3.65 MIL/uL (4.50-6.20); RED CELL DISTRIBUTION WIDTH 13.2 % (11.0-15.5); WHITE BLOOD COUNT (AUTO) 11.9 K/uL (4.8-10.8)
[2020-11-05 03:54] LABS: ALBUMIN 3.2 g/dL (3.5-5.0); BILIRUBIN,TOTAL 0.6 mg/dL (0.2-1.0); CREATININE 0.9 mg/dL (0.5-1.5); MAGNESIUM 2.1 mg/dL (1.80-2.40); PHOSPHORUS 1.3 mg/dL (2.5-4.9); POTASSIUM 4.2 mmol/L (3.5-5.1); THYROID STIMULATING HORMONE 0.07 uIU/mL (0.36-3.74); TOTAL PROTEIN, SERUM 6.6 g/dL (6.0-8.3)
[2020-11-05] MEDS: DOXYCYCLINE 100MG+NS 250ML 250 ML IV SCH ×2 (05:06→15:24)
[2020-11-05 05:21] LABS: ABG BASE EXCESS 21.3 mmol/L (-2.0-3.0); ABG HCO3 49.5 mmol/L (21.0-28.0); ABG OXYGEN SATURATION 97.7 % (95.0-99.0); ABG PCO2 69 mmHg (35-48)
[2020-11-05] MEDS: FAMOTIDINE 20MG TAB PO SCH ×2 (08:30→21:00)
[2020-11-05] MEDS: SUCRALFATE 1 GM TABLET PO SCH ×3 (08:30→17:00)
[2020-11-05] MEDS: ASPIRIN 81MG CHEW TAB PO SCH (08:30)
[2020-11-05] MEDS: OSELTAMIVIR PHOSPHATE 75 MG CAP PO SCH ×2 (08:30→21:00)
[2020-11-05] MEDS: BENZONATATE 100 MG CAPSULE PO SCH (08:30)
[2020-11-05] MEDS: METOPROLOL TARTRATE 25 MG TAB PO SCH ×2 (08:30→21:00)
[2020-11-05] MEDS: GABAPENTIN 300 MG CAPSULE PO SCH ×3 (08:30→21:00)
[2020-11-05] MEDS: SOLU-MEDROL 40MG VIAL IVP SCH ×2 (08:30→21:46)
[2020-11-05] MEDS: LUBIPROSTONE 24 MCG CAP PO SCH ×2 (09:12→17:00)
[2020-11-05] MEDS: ATORVASTATIN 10 MG TABLET PO SCH (09:12)
[2020-11-05] MEDS: METOCLOPRAMIDE 10 MG TABLET PO SCH (09:12)
[2020-11-05] MEDS: SIMETHICONE 80 MG TAB.CHEW PO SCH ×2 (09:13→21:00)
[2020-11-05] MEDS: MONTELUKAST SODIUM 10 MG TAB PO SCH (21:00)
[2020-11-06] VITALS (24 sets, daily range): BP systolic 112–152; BP diastolic 69–86
[2020-11-06] MEDS: HEPARIN 5,000 UNIT VIAL SQ SCH ×3 (00:33→14:33)
[2020-11-06] MEDS: ZOSYN 3.375GM+NS 50ML 50 ML IV SCH ×3 (00:34→14:33)
[2020-11-06] MEDS: FUROSEMIDE 40MG VIAL IV SCH ×2 (02:07→14:33)
[2020-11-06 03:48] LABS: HEMATOCRIT 39.4 % (42-54); MEAN CORPUSCULAR HEMOGLOBIN 27.6 pg (27.0-33.0); MEAN CORPUSCULAR HGB CONC 26.1 g/dL (32.0-36.0); MEAN CORPUSCULAR VOLUME 105.6 fL (79-99); PLATELET COUNT (AUTO) 187 K/uL (130-400); RED BLOOD CELL COUNT(AUTO) 3.73 MIL/uL (4.50-6.20); RED CELL DISTRIBUTION WIDTH 13.4 % (11.0-15.5); WHITE BLOOD COUNT (AUTO) 9.2 K/uL (4.8-10.8)
[2020-11-06 04:00] LABS: MAGNESIUM 2.4 mg/dL (1.80-2.40); PHOSPHORUS 2.7 mg/dL (2.5-4.9)
[2020-11-06 04:09] LABS: ABG BASE EXCESS 25.2 mmol/L (-2.0-3.0); ABG HCO3 59.7 mmol/L (21.0-28.0); ABG OXYGEN SATURATION 97.2 % (95.0-99.0); ABG PCO2 125 mmHg (35-48)
[2020-11-06] MEDS: DOXYCYCLINE 100MG+NS 250ML 250 ML IV SCH ×2 (04:47→14:33)
[2020-11-06] MEDS: SOLU-MEDROL 40MG VIAL IVP SCH ×2 (10:11→20:38)
[2020-11-06] MEDS: ATORVASTATIN 10 MG TABLET PO SCH (10:11)
[2020-11-06] MEDS: BENZONATATE 100 MG CAPSULE PO SCH (10:11)
[2020-11-06] MEDS: OSELTAMIVIR PHOSPHATE 75 MG CAP PO SCH ×2 (10:11→20:38)
[2020-11-06] MEDS: METOPROLOL TARTRATE 25 MG TAB PO SCH ×2 (10:11→20:38)
[2020-11-06] MEDS: METOCLOPRAMIDE 10 MG TABLET PO SCH (10:11)
[2020-11-06] MEDS: SIMETHICONE 80 MG TAB.CHEW PO SCH ×2 (10:11→20:38)
[2020-11-06] MEDS: ASPIRIN 81MG CHEW TAB PO SCH (10:11)
[2020-11-06] MEDS: FAMOTIDINE 20MG TAB PO SCH ×2 (10:11→20:38)
[2020-11-06] MEDS: LUBIPROSTONE 24 MCG CAP PO SCH ×2 (10:18→16:09)
[2020-11-06] MEDS: SUCRALFATE 1 GM TABLET PO SCH ×3 (10:21→16:09)
[2020-11-06] MEDS: GABAPENTIN 300 MG CAPSULE PO SCH ×3 (10:22→20:39)
[2020-11-06 15:12] LABS: ABG BASE EXCESS 29.6 mmol/L (-2.0-3.0); ABG OXYGEN SATURATION 98.4 % (95.0-99.0); ABG PCO2 136 mmHg (35-48)
[2020-11-06 17:11] LABS: ABG BASE EXCESS 26.3 mmol/L (-2.0-3.0); ABG HCO3 58.8 mmol/L (21.0-28.0); ABG OXYGEN SATURATION 90.3 % (95.0-99.0); ABG PCO2 103 mmHg (35-48)
[2020-11-06] MEDS: MONTELUKAST SODIUM 10 MG TAB PO SCH (20:38)
[2020-11-06] MEDS: ALBUTEROL INHALER 90MCG/INH IH SCH (20:45)
[2020-11-07] VITALS (24 sets, daily range): BP systolic 125–160; BP diastolic 65–87
[2020-11-07] MEDS: ALBUTEROL INHALER 90MCG/INH IH SCH ×6 (00:45→20:20)
[2020-11-07] MEDS: ZOSYN 3.375GM+NS 50ML 50 ML IV SCH ×3 (01:25→17:07)
[2020-11-07] MEDS: HEPARIN 5,000 UNIT VIAL SQ SCH ×3 (01:27→15:43)
[2020-11-07] MEDS: DOXYCYCLINE 100MG+NS 250ML 250 ML IV SCH ×2 (03:20→15:44)
[2020-11-07 05:14] LABS: HEMATOCRIT 40.8 % (42-54); MEAN CORPUSCULAR HEMOGLOBIN 27.3 pg (27.0-33.0); MEAN CORPUSCULAR HGB CONC 25.5 g/dL (32.0-36.0); MEAN CORPUSCULAR VOLUME 107.1 fL (79-99); RED BLOOD CELL COUNT(AUTO) 3.81 MIL/uL (4.50-6.20); RED CELL DISTRIBUTION WIDTH 13.4 % (11.0-15.5); WHITE BLOOD COUNT (AUTO) 9.6 K/uL (4.8-10.8)
[2020-11-07 05:15] LABS: CREATININE 1.1 mg/dL (0.5-1.5); POTASSIUM 3.6 mmol/L (3.5-5.1)
[2020-11-07] MEDS ORDERED: ALBUTEROL 0.083% 2.5 MG/3 ML INH IH ONE (07:29)
[2020-11-07] MEDS: LUBIPROSTONE 24 MCG CAP PO SCH ×2 (08:55→17:07)
[2020-11-07] MEDS: GABAPENTIN 300 MG CAPSULE PO SCH ×3 (08:55→20:21)
[2020-11-07] MEDS: ASPIRIN 81MG CHEW TAB PO SCH (08:56)
[2020-11-07] MEDS: SOLU-MEDROL 40MG VIAL IVP SCH ×2 (08:56→20:20)
[2020-11-07] MEDS: FAMOTIDINE 20MG TAB PO SCH ×2 (08:56→20:21)
[2020-11-07] MEDS: METOPROLOL TARTRATE 25 MG TAB PO SCH ×2 (08:56→20:22)
[2020-11-07] MEDS: BENZONATATE 100 MG CAPSULE PO SCH (08:56)
[2020-11-07] MEDS: SIMETHICONE 80 MG TAB.CHEW PO SCH ×2 (08:57→20:21)
[2020-11-07] MEDS: OSELTAMIVIR PHOSPHATE 75 MG CAP PO SCH ×2 (08:57→20:21)
[2020-11-07] MEDS: SUCRALFATE 1 GM TABLET PO SCH ×3 (08:58→17:07)
[2020-11-07] MEDS: DEXTROSE 5%-WATER 1,000 ML IV SCH (08:58)
[2020-11-07] MEDS: ATORVASTATIN 10 MG TABLET PO SCH (09:38)
[2020-11-07] MEDS: METOCLOPRAMIDE 10 MG TABLET PO SCH (09:38)
[2020-11-07] MEDS: ALBUTEROL 0.083% 2.5 MG/3 ML INH IH SCH ×3 (10:07→18:28)
[2020-11-07 10:55] LABS: ABG BASE EXCESS 22.2 mmol/L (-2.0-3.0); ABG HCO3 53.6 mmol/L (21.0-28.0); ABG OXYGEN SATURATION 87.1 % (95.0-99.0); ABG PCO2 94 mmHg (35-48)
[2020-11-07] MEDS: MONTELUKAST SODIUM 10 MG TAB PO SCH (20:21)
[2020-11-08] VITALS (22 sets, daily range): BP systolic 117–163; BP diastolic 49–89
[2020-11-08] MEDS: ZOSYN 3.375GM+NS 50ML 50 ML IV SCH ×3 (00:11→17:18)
[2020-11-08] MEDS: HEPARIN 5,000 UNIT VIAL SQ SCH ×3 (00:12→15:59)
[2020-11-08] MEDS: ALBUTEROL 0.083% 2.5 MG/3 ML INH IH SCH ×7 (00:14→23:44)
[2020-11-08] MEDS: ALBUTEROL INHALER 90MCG/INH IH SCH ×7 (00:15→20:45)
[2020-11-08] MEDS: DEXTROSE 5%-WATER 1,000 ML IV SCH ×2 (00:22→10:55)
[2020-11-08] MEDS: DOXYCYCLINE 100MG+NS 250ML 250 ML IV SCH ×2 (02:45→15:58)
[2020-11-08 04:31] LABS: ABG BASE EXCESS 23.8 mmol/L (-2.0-3.0); ABG HCO3 56.2 mmol/L (21.0-28.0); ABG OXYGEN SATURATION 92.4 % (95.0-99.0); ABG PCO2 104 mmHg (35-48)
[2020-11-08 07:38] LABS: HEMATOCRIT 40.2 % (42-54); MEAN CORPUSCULAR HEMOGLOBIN 27.9 pg (27.0-33.0); MEAN CORPUSCULAR HGB CONC 27.1 g/dL (32.0-36.0); MEAN CORPUSCULAR VOLUME 103.1 fL (79-99); NUCLEATED RED BLOOD CELLS 0.3 % (0.0-0.19); PLATELET COUNT (AUTO) 196 K/uL (130-400); RED CELL DISTRIBUTION WIDTH 13.5 % (11.0-15.5); WHITE BLOOD COUNT (AUTO) 9.4 K/uL (4.8-10.8)
[2020-11-08 07:54] LABS: CREATININE 1.1 mg/dL (0.5-1.5); POTASSIUM 3.9 mmol/L (3.5-5.1)
[2020-11-08] MEDS: SUCRALFATE 1 GM TABLET PO SCH ×3 (08:00→12:04)
[2020-11-08] MEDS: OSELTAMIVIR PHOSPHATE 75 MG CAP PO SCH ×2 (08:17→21:22)
[2020-11-08] MEDS: SOLU-MEDROL 40MG VIAL IVP SCH ×2 (08:18→21:22)
[2020-11-08] MEDS: FAMOTIDINE 20MG TAB PO SCH ×2 (08:18→21:22)
[2020-11-08] MEDS: METOPROLOL TARTRATE 25 MG TAB PO SCH ×2 (08:18→21:22)
[2020-11-08] MEDS: GABAPENTIN 300 MG CAPSULE PO SCH ×3 (08:18→21:20)
[2020-11-08] MEDS: ASPIRIN 81MG CHEW TAB PO SCH (08:18)
[2020-11-08] MEDS: BENZONATATE 100 MG CAPSULE PO SCH (08:18)
[2020-11-08] MEDS: LUBIPROSTONE 24 MCG CAP PO SCH ×2 (08:37→17:53)
[2020-11-08] MEDS: METOCLOPRAMIDE 10 MG TABLET PO SCH (08:37)
[2020-11-08] MEDS: ATORVASTATIN 10 MG TABLET PO SCH (08:37)
[2020-11-08] MEDS: SIMETHICONE 80 MG TAB.CHEW PO SCH ×2 (08:37→21:23)
[2020-11-08 09:16] LABS: BAND NEUTROPHILS % (MANUAL) 4 % (0-2); LYMPHOCYTES % (MANUAL) 3 % (22-44); MAN.DIFF COMMENT-IMPRESSION MANUAL DIFFERENTIAL; SEGMENTED NEUTROPHILS % 93 % (40-70)
[2020-11-08 09:17] LABS: PLATELET MORPHOLOGY COMMENT ADEQUATE
[2020-11-08] MEDS: BUSPIRONE HCL 5 MG TABLET PO SCH ×2 (13:28→21:22)
[2020-11-08] MEDS ORDERED: NON-FORMULARY MEDICATION 1 EACH (Buspirone HCl 15 MG) PO SCH (14:00)
[2020-11-08] MEDS: FEXOFENADINE HCL 180 MG PO SCH (21:00)
[2020-11-08] MEDS ORDERED: THEOPHYLLINE ANHYDROUS 400 MG PO SCH (21:00)
[2020-11-08] MEDS ORDERED: FEXOFENADINE HCL 180 MG PO SCH (21:00)
[2020-11-08] MEDS: THEOPHYLLINE ANHYDROUS 100 MG CAP.ER.24H PO SCH (21:23)
[2020-11-08] MEDS: MONTELUKAST SODIUM 10 MG TAB PO SCH (21:23)
[2020-11-09] VITALS (23 sets, daily range): BP systolic 120–175; BP diastolic 57–96
[2020-11-09] MEDS: ALBUTEROL INHALER 90MCG/INH IH SCH ×5 (00:45→14:31)
[2020-11-09] MEDS: ZOSYN 3.375GM+NS 50ML 50 ML IV SCH ×3 (00:56→16:11)
[2020-11-09] MEDS: HEPARIN 5,000 UNIT VIAL SQ SCH ×3 (00:57→16:14)
[2020-11-09] MEDS: ALBUTEROL 0.083% 2.5 MG/3 ML INH IH SCH ×6 (03:03→20:31)
[2020-11-09] MEDS: DOXYCYCLINE 100MG+NS 250ML 250 ML IV SCH ×2 (04:42→14:30)
[2020-11-09 06:07] LABS: HEMATOCRIT 37.1 % (42-54); MEAN CORPUSCULAR HEMOGLOBIN 27.7 pg (27.0-33.0); MEAN CORPUSCULAR HGB CONC 26.7 g/dL (32.0-36.0); MEAN CORPUSCULAR VOLUME 103.6 fL (79-99); NUCLEATED RED BLOOD CELLS 0.4 % (0.0-0.19); RED BLOOD CELL COUNT(AUTO) 3.58 MIL/uL (4.50-6.20); RED CELL DISTRIBUTION WIDTH 13.3 % (11.0-15.5); WHITE BLOOD COUNT (AUTO) 8.1 K/uL (4.8-10.8)
[2020-11-09 07:46] LABS: CREATININE 0.8 mg/dL (0.5-1.5); POTASSIUM 4.3 mmol/L (3.5-5.1)
[2020-11-09] MEDS: SIMETHICONE 80 MG TAB.CHEW PO SCH ×2 (08:12→20:28)
[2020-11-09] MEDS: SERTRALINE HCL 50 MG TABLET PO SCH (08:12)
[2020-11-09] MEDS: BENZONATATE 100 MG CAPSULE PO SCH (08:12)
[2020-11-09] MEDS: SOLU-MEDROL 40MG VIAL IVP SCH ×2 (08:12→20:30)
[2020-11-09] MEDS: METOCLOPRAMIDE 10 MG TABLET PO SCH (08:12)
[2020-11-09] MEDS: FAMOTIDINE 20MG TAB PO SCH ×2 (08:12→20:28)
[2020-11-09] MEDS: METOPROLOL TARTRATE 25 MG TAB PO SCH ×2 (08:12→20:29)
[2020-11-09] MEDS: ATORVASTATIN 10 MG TABLET PO SCH (08:12)
[2020-11-09] MEDS: ASPIRIN 81MG CHEW TAB PO SCH (08:13)
[2020-11-09] MEDS: OSELTAMIVIR PHOSPHATE 75 MG CAP PO SCH (08:13)
[2020-11-09] MEDS: LUBIPROSTONE 24 MCG CAP PO SCH ×2 (08:13→16:37)
[2020-11-09] MEDS: SUCRALFATE 1 GM TABLET PO SCH ×3 (08:13→16:16)
[2020-11-09] MEDS: GABAPENTIN 300 MG CAPSULE PO SCH ×3 (08:19→20:29)
[2020-11-09] MEDS: BUSPIRONE HCL 5 MG TABLET PO SCH ×3 (08:20→20:28)
[2020-11-09] MEDS ORDERED: NON-FORMULARY MEDICATION 1 EACH (Sertraline HCl 100 MG) PO SCH (09:00)
[2020-11-09] MEDS: INSULIN HUMULIN R 100 UNIT/ML 3ML SQ SCH ×3 (12:19→21:57)
[2020-11-09] MEDS: MONTELUKAST SODIUM 10 MG TAB PO SCH (20:29)
[2020-11-09] MEDS: THEOPHYLLINE ANHYDROUS 100 MG CAP.ER.24H PO SCH (20:29)
[2020-11-09] MEDS: FEXOFENADINE HCL 180 MG PO SCH (20:43)
[2020-11-10] VITALS (12 sets, daily range): BP systolic 107–149; BP diastolic 66–104
[2020-11-10] MEDS: ZOSYN 3.375GM+NS 50ML 50 ML IV SCH ×3 (00:02→17:40)
[2020-11-10] MEDS: HEPARIN 5,000 UNIT VIAL SQ SCH ×4 (00:04→22:33)
[2020-11-10] MEDS: ALBUTEROL 0.083% 2.5 MG/3 ML INH IH SCH ×7 (00:05→21:53)
[2020-11-10 03:47] LABS: HEMATOCRIT 38.7 % (42-54); MEAN CORPUSCULAR HEMOGLOBIN 27.7 pg (27.0-33.0); MEAN CORPUSCULAR HGB CONC 26.6 g/dL (32.0-36.0); NUCLEATED RED BLOOD CELLS 0.2 % (0.0-0.19); RED BLOOD CELL COUNT(AUTO) 3.72 MIL/uL (4.50-6.20); RED CELL DISTRIBUTION WIDTH 13.2 % (11.0-15.5); WHITE BLOOD COUNT (AUTO) 8.3 K/uL (4.8-10.8)
[2020-11-10] MEDS: DOXYCYCLINE 100MG+NS 250ML 250 ML IV SCH ×2 (03:49→14:55)
[2020-11-10 04:04] LABS: CREATININE 0.6 mg/dL (0.5-1.5); POTASSIUM 4.9 mmol/L (3.5-5.1)
[2020-11-10] MEDS: INSULIN HUMULIN R 100 UNIT/ML 3ML SQ SCH ×4 (08:21→21:00)
[2020-11-10] MEDS: BUSPIRONE HCL 5 MG TABLET PO SCH ×3 (08:22→21:39)
[2020-11-10] MEDS: ASPIRIN 81MG CHEW TAB PO SCH (08:22)
[2020-11-10] MEDS: METOPROLOL TARTRATE 25 MG TAB PO SCH ×2 (08:22→21:39)
[2020-11-10] MEDS: SOLU-MEDROL 40MG VIAL IVP SCH ×2 (08:22→21:48)
[2020-11-10] MEDS: FAMOTIDINE 20MG TAB PO SCH ×2 (08:23→21:39)
[2020-11-10] MEDS: GABAPENTIN 300 MG CAPSULE PO SCH ×3 (08:23→21:39)
[2020-11-10] MEDS: BENZONATATE 100 MG CAPSULE PO SCH (08:23)
[2020-11-10] MEDS: SERTRALINE HCL 50 MG TABLET PO SCH (08:23)
[2020-11-10] MEDS: SUCRALFATE 1 GM TABLET PO SCH ×3 (08:32→17:41)
[2020-11-10] MEDS: SIMETHICONE 80 MG TAB.CHEW PO SCH ×2 (08:32→21:47)
[2020-11-10] MEDS: METOCLOPRAMIDE 10 MG TABLET PO SCH (08:32)
[2020-11-10] MEDS: LUBIPROSTONE 24 MCG CAP PO SCH ×2 (08:32→17:08)
[2020-11-10] MEDS: ATORVASTATIN 10 MG TABLET PO SCH (08:38)
[2020-11-10] MEDS: FEXOFENADINE HCL 180 MG PO SCH (21:00)
[2020-11-10] MEDS: ACETAMINOPHEN WITH CODEINE 1 TAB TAB PO PRN (21:39)
[2020-11-10] MEDS: MONTELUKAST SODIUM 10 MG TAB PO SCH (21:46)
[2020-11-10] MEDS: THEOPHYLLINE ANHYDROUS 100 MG CAP.ER.24H PO SCH (21:47)
[2020-11-10] MEDS: DEXTROSE 5%-WATER 1,000 ML IV SCH (22:14)
[2020-11-11] VITALS: BP 119/68
[2020-11-11] MEDS: ZOSYN 3.375GM+NS 50ML 50 ML IV SCH ×3 (00:44→16:33)
[2020-11-11] MEDS: ALBUTEROL 0.083% 2.5 MG/3 ML INH IH SCH ×3 (01:25→10:46)
[2020-11-11 03:46] LABS: HEMATOCRIT 36.2 % (42-54); MEAN CORPUSCULAR HEMOGLOBIN 27.4 pg (27.0-33.0); MEAN CORPUSCULAR HGB CONC 26.8 g/dL (32.0-36.0); MEAN CORPUSCULAR VOLUME 102.3 fL (79-99); NUCLEATED RED BLOOD CELLS 0.2 % (0.0-0.19); RED BLOOD CELL COUNT(AUTO) 3.54 MIL/uL (4.50-6.20); WHITE BLOOD COUNT (AUTO) 10.2 K/uL (4.8-10.8)
[2020-11-11] MEDS: DOXYCYCLINE 100MG+NS 250ML 250 ML IV SCH ×2 (03:51→17:20)
[2020-11-11 04:00] VITALS: BP 129/67
[2020-11-11 04:01] LABS: CREATININE 0.6 mg/dL (0.5-1.5); PHOSPHORUS 3.2 mg/dL (2.5-4.9); POTASSIUM 4.7 mmol/L (3.5-5.1)
[2020-11-11] MEDS: ACETAMINOPHEN WITH CODEINE 1 TAB TAB PO PRN ×2 (04:12→10:34)
[2020-11-11] MEDS: INSULIN HUMULIN R 100 UNIT/ML 3ML SQ SCH ×4 (06:31→21:00)
[2020-11-11] MEDS: SUCRALFATE 1 GM TABLET PO SCH ×3 (06:35→16:33)
[2020-11-11] MEDS: HEPARIN 5,000 UNIT VIAL SQ SCH ×2 (06:35→16:42)
[2020-11-11 07:00] VITALS: BP 129/74
[2020-11-11] MEDS: DEXTROSE 5%-WATER 1,000 ML IV SCH ×2 (08:05→21:25)
[2020-11-11] MEDS: BUSPIRONE HCL 5 MG TABLET PO SCH ×3 (09:12→20:32)
[2020-11-11] MEDS: GABAPENTIN 300 MG CAPSULE PO SCH ×3 (09:12→20:32)
[2020-11-11] MEDS: ASPIRIN 81MG CHEW TAB PO SCH (09:12)
[2020-11-11] MEDS: SERTRALINE HCL 50 MG TABLET PO SCH (09:12)
[2020-11-11] MEDS: FAMOTIDINE 20MG TAB PO SCH ×2 (09:12→20:31)
[2020-11-11] MEDS: METOPROLOL TARTRATE 25 MG TAB PO SCH ×2 (09:13→20:32)
[2020-11-11] MEDS: BENZONATATE 100 MG CAPSULE PO SCH (09:13)
[2020-11-11] MEDS: SOLU-MEDROL 40MG VIAL IVP SCH ×2 (09:13→20:31)
[2020-11-11] MEDS: LUBIPROSTONE 24 MCG CAP PO SCH ×2 (09:18→16:33)
[2020-11-11] MEDS: SIMETHICONE 80 MG TAB.CHEW PO SCH ×2 (09:18→20:32)
[2020-11-11] MEDS: ATORVASTATIN 10 MG TABLET PO SCH (09:18)
[2020-11-11] MEDS: METOCLOPRAMIDE 10 MG TABLET PO SCH (09:18)
[2020-11-11 10:03] VITALS: BP 119/56
[2020-11-11 17:33] VITALS: BP 127/72
[2020-11-11] MEDS: IPRATROPIUM 0.5 MG/2.5 ML INH IH SCH ×2 (18:14→23:55)
[2020-11-11 19:49] VITALS: BP 134/71
[2020-11-11] MEDS: MONTELUKAST SODIUM 10 MG TAB PO SCH (20:32)
[2020-11-11] MEDS: THEOPHYLLINE ANHYDROUS 100 MG CAP.ER.24H PO SCH (21:00)
[2020-11-11] MEDS: FEXOFENADINE HCL 180 MG PO SCH (21:00)
[2020-11-12] VITALS (7 sets, daily range): BP systolic 122–138; BP diastolic 73–91
[2020-11-12] MEDS: ZOSYN 3.375GM+NS 50ML 50 ML IV SCH ×3 (01:24→17:00)
[2020-11-12] MEDS: HEPARIN 5,000 UNIT VIAL SQ SCH ×4 (01:26→20:34)
[2020-11-12] MEDS: DOXYCYCLINE 100MG+NS 250ML 250 ML IV SCH ×2 (04:25→14:30)
[2020-11-12 05:37] LABS: HEMATOCRIT 37.3 % (42-54); MEAN CORPUSCULAR HEMOGLOBIN 27.6 pg (27.0-33.0); MEAN CORPUSCULAR HGB CONC 27.1 g/dL (32.0-36.0); MEAN CORPUSCULAR VOLUME 101.9 fL (79-99); NUCLEATED RED BLOOD CELLS 0.2 % (0.0-0.19); RED BLOOD CELL COUNT(AUTO) 3.66 MIL/uL (4.50-6.20); RED CELL DISTRIBUTION WIDTH 13.3 % (11.0-15.5); WHITE BLOOD COUNT (AUTO) 9.9 K/uL (4.8-10.8)
[2020-11-12 05:42] LABS: CREATININE 0.5 mg/dL (0.5-1.5); POTASSIUM 4.8 mmol/L (3.5-5.1)
[2020-11-12] MEDS: IPRATROPIUM 0.5 MG/2.5 ML INH IH SCH ×3 (06:38→20:04)
[2020-11-12] MEDS: SUCRALFATE 1 GM TABLET PO SCH ×3 (06:42→17:00)
[2020-11-12] MEDS: INSULIN HUMULIN R 100 UNIT/ML 3ML SQ SCH ×4 (07:41→20:35)
[2020-11-12] MEDS: ASPIRIN 81MG CHEW TAB PO SCH (09:23)
[2020-11-12] MEDS: LUBIPROSTONE 24 MCG CAP PO SCH ×2 (09:23→16:34)
[2020-11-12] MEDS: BUSPIRONE HCL 5 MG TABLET PO SCH ×3 (09:23→20:37)
[2020-11-12] MEDS: METOCLOPRAMIDE 10 MG TABLET PO SCH (09:23)
[2020-11-12] MEDS: SIMETHICONE 80 MG TAB.CHEW PO SCH ×2 (09:23→20:36)
[2020-11-12] MEDS: METOPROLOL TARTRATE 25 MG TAB PO SCH ×2 (09:24→20:38)
[2020-11-12] MEDS: SERTRALINE HCL 50 MG TABLET PO SCH (09:24)
[2020-11-12] MEDS: BENZONATATE 100 MG CAPSULE PO SCH (09:24)
[2020-11-12] MEDS: FAMOTIDINE 20MG TAB PO SCH ×2 (09:24→20:37)
[2020-11-12] MEDS: ATORVASTATIN 10 MG TABLET PO SCH (09:24)
[2020-11-12] MEDS: GABAPENTIN 300 MG CAPSULE PO SCH ×3 (09:24→20:38)
[2020-11-12] MEDS: SOLU-MEDROL 40MG VIAL IVP SCH ×2 (09:30→20:36)
[2020-11-12] MEDS: DEXTROSE 5%-WATER 1,000 ML IV SCH (11:36)
[2020-11-12 12:36] LABS: INR 1.12 (0.85-1.15); PROTHROMBIN TIME 11.9 SEC (9.6-11.6)
[2020-11-12 12:37] LABS: PARTIAL THROMBOPLASTIN TIME 25.6 SEC (26.3-35.5)
[2020-11-12] MEDS: MONTELUKAST SODIUM 10 MG TAB PO SCH (20:36)
[2020-11-12] MEDS: THEOPHYLLINE ANHYDROUS 100 MG CAP.ER.24H PO SCH (20:37)
[2020-11-12] MEDS: ACETAMINOPHEN WITH CODEINE 1 TAB TAB PO PRN (20:53)
[2020-11-12] MEDS: FEXOFENADINE HCL 180 MG PO SCH (21:00)
[2020-11-13] MEDS: ZOSYN 3.375GM+NS 50ML 50 ML IV SCH ×3 (00:37→17:22)
[2020-11-13] MEDS: DEXTROSE 5%-WATER 1,000 ML IV SCH ×2 (03:44→12:33)
[2020-11-13] MEDS: DOXYCYCLINE 100MG+NS 250ML 250 ML IV SCH ×2 (03:44→14:59)
[2020-11-13 04:16] VITALS: BP 116/78
[2020-11-13] MEDS: HEPARIN 5,000 UNIT VIAL SQ SCH ×3 (04:47→21:24)
[2020-11-13] MEDS: IPRATROPIUM 0.5 MG/2.5 ML INH IH SCH ×4 (06:00→23:39)
[2020-11-13] MEDS: INSULIN HUMULIN R 100 UNIT/ML 3ML SQ SCH ×4 (06:09→21:27)
[2020-11-13 08:42] VITALS: BP 139/77
[2020-11-13] MEDS: LUBIPROSTONE 24 MCG CAP PO SCH ×2 (10:15→17:22)
[2020-11-13] MEDS: GABAPENTIN 300 MG CAPSULE PO SCH ×3 (10:15→21:03)
[2020-11-13] MEDS: ASPIRIN 81MG CHEW TAB PO SCH (10:15)
[2020-11-13] MEDS: ATORVASTATIN 10 MG TABLET PO SCH (10:16)
[2020-11-13] MEDS: SERTRALINE HCL 50 MG TABLET PO SCH (10:16)
[2020-11-13] MEDS: SUCRALFATE 1 GM TABLET PO SCH ×3 (10:16→17:22)
[2020-11-13] MEDS: BENZONATATE 100 MG CAPSULE PO SCH (10:16)
[2020-11-13] MEDS: METOCLOPRAMIDE 10 MG TABLET PO SCH (10:16)
[2020-11-13] MEDS: SIMETHICONE 80 MG TAB.CHEW PO SCH ×2 (10:16→21:03)
[2020-11-13] MEDS: FAMOTIDINE 20MG TAB PO SCH ×2 (10:16→21:03)
[2020-11-13] MEDS: METOPROLOL TARTRATE 25 MG TAB PO SCH ×2 (10:17→21:03)
[2020-11-13] MEDS: BUSPIRONE HCL 5 MG TABLET PO SCH ×3 (10:17→21:03)
[2020-11-13] MEDS: SOLU-MEDROL 40MG VIAL IVP SCH ×2 (10:17→21:04)
[2020-11-13] MEDS: ACETAMINOPHEN WITH CODEINE 1 TAB TAB PO PRN (10:17)
[2020-11-13 12:15] VITALS: BP 108/66
[2020-11-13 16:38] VITALS: BP 125/78
[2020-11-13 20:00] VITALS: BP 124/69
[2020-11-13] MEDS: FEXOFENADINE HCL 180 MG PO SCH (21:00)
[2020-11-13] MEDS: MONTELUKAST SODIUM 10 MG TAB PO SCH (21:03)
[2020-11-13] MEDS: THEOPHYLLINE ANHYDROUS 100 MG CAP.ER.24H PO SCH (21:03)
[2020-11-13 23:28] VITALS: BP 137/75
== END 2020-11-14 | DRG 177 ==
LOC: EDH 09:51 → OBSVTOIN 13:46 → EDHIP 13:46 → 2BH 11-03 16:27 → 2DH 11-04 21:42 → 4DH 11-11 12:08
PROVIDERS: ADMIT Internal Medicine Critical Care Medicine; ATTEND Internal Medicine Critical Care Medicine
PROC: 5A09357 Assistance with Respiratory Ventilation, Less than 24 Consecutive Hours, Continuous Positive Airway Pressure (ICD-10-PCS; 2020-11-03)
PROC: 5A09357 Assistance with Respiratory Ventilation, Less than 24 Consecutive Hours, Continuous Positive Airway Pressure (ICD-10-PCS; 2020-11-04)
PROC: 5A09457 Assistance with Respiratory Ventilation, 24-96 Consecutive Hours, Continuous Positive Airway Pressure (ICD-10-PCS; 2020-11-04)
PROC: 5A09457 Assistance with Respiratory Ventilation, 24-96 Consecutive Hours, Continuous Positive Airway Pressure (ICD-10-PCS; 2020-11-05)
PROC: 5A09357 Assistance with Respiratory Ventilation, Less than 24 Consecutive Hours, Continuous Positive Airway Pressure (ICD-10-PCS; 2020-11-08)
PROC: 5A09357 Assistance with Respiratory Ventilation, Less than 24 Consecutive Hours, Continuous Positive Airway Pressure (ICD-10-PCS; 2020-11-09)
PROC: 5A09357 Assistance with Respiratory Ventilation, Less than 24 Consecutive Hours, Continuous Positive Airway Pressure (ICD-10-PCS; 2020-11-10)
PROC: 02HV33Z Insertion of Infusion Device into Superior Vena Cava, Percutaneous Approach (ICD-10-PCS; principal; 2020-11-12)
PROC: 5A09357 Assistance with Respiratory Ventilation, Less than 24 Consecutive Hours, Continuous Positive Airway Pressure (ICD-10-PCS; 2020-11-12)
PROC: 5A09357 Assistance with Respiratory Ventilation, Less than 24 Consecutive Hours, Continuous Positive Airway Pressure (ICD-10-PCS; 2020-11-12)
DX: J69.0 Pneumonitis due to inhalation of food and vomit (principal); J96.22 Acute and chronic respiratory failure with hypercapnia; G93.41 Metabolic encephalopathy; J96.21 Acute and chronic respiratory failure with hypoxia; J44.1 Chronic obstructive pulmonary disease with (acute) exacerbation; Z99.81 Dependence on supplemental oxygen; Z93.0 Tracheostomy status; E11.22 Type 2 diabetes mellitus with diabetic chronic kidney disease; E83.39 Other disorders of phosphorus metabolism; E87.8 Other disorders of electrolyte and fluid balance, not elsewhere classified; D63.8 Anemia in other chronic diseases classified elsewhere; Z88.8 Allergy status to other drugs, medicaments and biological substances; Z20.822 Contact with and (suspected) exposure to COVID-19; Z68.35 Body mass index [BMI] 35.0-35.9, adult; M41.9 Scoliosis, unspecified; E66.9 Obesity, unspecified; E78.5 Hyperlipidemia, unspecified; R53.81 Other malaise; N18.9 Chronic kidney disease, unspecified; I12.9 Hypertensive chronic kidney disease with stage 1 through stage 4 chronic kidney disease, or unspecified chronic kidney disease; G47.33 Obstructive sleep apnea (adult) (pediatric); F32.9 Major depressive disorder, single episode, unspecified; F41.9 Anxiety disorder, unspecified; Z74.01 Bed confinement status; Z91.19 Patient's noncompliance with other medical treatment and regimen; E66.01 Morbid (severe) obesity due to excess calories
CPT/HCPCS: 36415; 36569; 36600; 70450; 71045; 71250; 73562; 74230; 80048; 80053; 81001; 82435; 82728; 82803; 82947; 82948; 83605; 83735; 84100; 84132; 84145; 84295; 84443; 84484; 85018; 85025; 85027; 85378; 85610; 85730; 86140; 87040; 87426; 92526; 92611; 93005; 94640; 94660; 94664; 94667; 94668; 97039; C1894; G0378; J1644; J1815; J1940; J2543; J2920; J3370; J3490; J7050; J7070; U0003

== ENCOUNTER 2020-12-15 13:29 | Inpatient (IN) | payer MEDICARE ==
[~2020-12-15] VITALS: Ht 167.6 cm; Wt 88.8 kg
[2020-12-15 14:04] LABS: BASOPHILS % (AUTO) 0.3 % (0.0-5.0); EOSINOPHILS % (AUTO) 0.1 % (0.0-8.0); HEMATOCRIT 34.6 % (42-54); LYMPHOCYTES % (AUTO) 8.2 % (21.0-51.0); MEAN CORPUSCULAR HEMOGLOBIN 28.6 pg (27.0-33.0); MEAN CORPUSCULAR HGB CONC 27.7 g/dL (32.0-36.0); NEUTROPHILS % (AUTO) 85.6 % (40.0-77.0); NUCLEATED RED BLOOD CELLS 0.4 % (0.0-0.19); PLATELET COUNT (AUTO) 375 K/uL (130-400); RED BLOOD CELL COUNT(AUTO) 3.36 MIL/uL (4.50-6.20); RED CELL DISTRIBUTION WIDTH 14.5 % (11.0-15.5); WHITE BLOOD COUNT (AUTO) 7.8 K/uL (4.8-10.8)
[2020-12-15 14:12] LABS: CREATININE 0.7 mg/dL (0.5-1.5); POTASSIUM 3.7 mmol/L (3.5-5.1)
[2020-12-15 14:13] LABS: INR 1.06 (0.85-1.15); PROTHROMBIN TIME 11.5 SEC (9.6-11.6)
[2020-12-15 14:14] LABS: PARTIAL THROMBOPLASTIN TIME 26.2 SEC (26.3-35.5)
[2020-12-15 14:16] LABS: ALBUMIN 3.4 g/dL (3.5-5.0); BILIRUBIN,TOTAL 0.4 mg/dL (0.2-1.0); TOTAL PROTEIN, SERUM 6.6 g/dL (6.0-8.3)
[2020-12-15] MEDS ORDERED: GLUCAGON 1MG KIT 1 MG ML IM PRN (15:00)
[2020-12-15] MEDS ORDERED: MAGNESIUM 2GM PREMIX 50ML 50 ML IV PRN (15:00)
[2020-12-15] MEDS ORDERED: LIDOCAINE HCL-MPF 1% 2ML VIAL IV PRN ×2 (15:00)
[2020-12-15] MEDS: PANTOPRAZOLE 40 MG TAB DR PO SCH (15:00)
[2020-12-15] MEDS: ENOXAPARIN SODIUM 40 MG/0.4 ML SYRINGE SQ SCH (15:00)
[2020-12-15] MEDS ORDERED: POTASSIUM CHLORIDE 20MEQ/100ML 100 ML IV PRN ×2 (15:00)
[2020-12-15] MEDS ORDERED: ACETAMINOPHEN 325 MG TAB PO PRN (15:00)
[2020-12-15] MEDS ORDERED: POTASSIUM CHLORIDE 10% ELIXIR 20 MEQ/15 ML UDCUP PO PRN (15:00)
[2020-12-15] MEDS ORDERED: LABETALOL 20MG VIAL IV PRN (15:00)
[2020-12-15] MEDS ORDERED: DEXTROSE 50%-WATER 50 ML DISP.SYRIN IV PRN (15:00)
[2020-12-15] MEDS: SOLU-MEDROL 125MG VIAL IVP SCH ×2 (15:00→21:00)
[2020-12-15 15:47] LABS: APPEARANCE,URINE Clear (CLEAR); BILIRUBIN,URINE Negative (NEGATIVE); COLOR,URINE Yellow (YELLOW); GLUCOSE, URINE (UA) >=1000 mg/dL (NEGATIVE); KETONES,URINE 15 mg/dL (NEGATIVE); LEUKOCYTE ESTERASE ,URINE Negative (NEGATIVE); NITRATE,URINE Negative (NEGATIVE); OCCULT BLOOD,URINE Negative (NEGATIVE); PROTEIN,URINE Negative (NEGATIVE); UROBILINOGEN,URINE 0.2 mg/dL (0.2-1.0)
[2020-12-15] MEDS ORDERED: ALBUTEROL INHALER 90MCG/INH IH ONE (15:55)
[2020-12-15 16:09] LABS: BACTERIA,URINE Rare /HPF (None Seen); MUCUS,URINE Rare LPF (None Seen); RBC,URINE 0-1 /HPF (0-1); SQUAMOUS EPITHELIAL CELL,UR 0-2 /HPF (0-2); WBC,URINE 0-1 /HPF (0-1)
[2020-12-15] MEDS ORDERED: SOLU-MEDROL 125MG VIAL ONE (20:21)
[2020-12-15] MEDS ORDERED: ENOXAPARIN SODIUM 40 MG/0.4 ML SYRINGE SQ ONE (20:21)
[2020-12-15] MEDS ORDERED: PANTOPRAZOLE 40 MG TAB DR ONE (20:22)
[2020-12-15] MEDS ORDERED: HYDROCODONE/ACETAMINOPHEN 7.5/325 MG TAB ONE (22:50)
[2020-12-16] VITALS (26 sets, daily range): BP systolic 86–143; BP diastolic 52–82
[2020-12-16] MEDS ORDERED: PRED20TA3 PO (00:55)
[2020-12-16] MEDS ORDERED: GLIM2TAB30 PO (01:01)
[2020-12-16] MEDS ORDERED: METO50TA18 PO (01:01)
[2020-12-16] MEDS ORDERED: METO10TA41 PO (01:08)
[2020-12-16] MEDS ORDERED: SPIRIVA (01:11)
[2020-12-16] MEDS ORDERED: BUDE10.26 IH (01:15)
[2020-12-16] MEDS ORDERED: VENTOLIN HFA (01:16)
[2020-12-16 04:11] LABS: ABG BASE EXCESS 17.1 mmol/L (-2.0-3.0); ABG HCO3 52.5 mmol/L (21.0-28.0); ABG OXYGEN SATURATION 95.1 % (95.0-99.0); ABG PCO2 139 mmHg (35-48)
[2020-12-16 05:51] LABS: MEAN CORPUSCULAR HEMOGLOBIN 28.5 pg (27.0-33.0); MEAN CORPUSCULAR HGB CONC 27.3 g/dL (32.0-36.0); MEAN CORPUSCULAR VOLUME 104.4 fL (79-99); NUCLEATED RED BLOOD CELLS 0.5 % (0.0-0.19); RED BLOOD CELL COUNT(AUTO) 3.16 MIL/uL (4.50-6.20); RED CELL DISTRIBUTION WIDTH 14.1 % (11.0-15.5); WHITE BLOOD COUNT (AUTO) 5.5 K/uL (4.8-10.8)
[2020-12-16 06:18] LABS: CREATININE 0.6 mg/dL (0.5-1.5); POTASSIUM 4.2 mmol/L (3.5-5.1)
[2020-12-16] MEDS ORDERED: DILTIAZEM 125 MG/25 ML INJ 125 MG in 0.9%NACL 100ML 100 ML IV SCH (06:45)
[2020-12-16] MEDS ORDERED: AMIODARONE 150MG VIAL 150 MG in DEXTROSE 5%-WATER 100 ML IV SCH (07:15)
[2020-12-16] MEDS ORDERED: AMIODARONE 900MG VIAL 360 MG in DEXTROSE 5%-WATER 200 ML IV SCH ×2 (07:16→07:22)
[2020-12-16] MEDS: HYDROCODONE/ACETAMINOPHEN 7.5/325 MG TAB PO PRN ×2 (07:21→21:20)
[2020-12-16] MEDS ORDERED: AMIODARONE 900MG VIAL 450 MG in DEXTROSE 5%-WATER 250 ML IV SCH (07:22)
[2020-12-16] MEDS ORDERED: DIGOXIN 250 MCG/ML 2ML AMP IV SCH ×3 (08:45→21:00)
[2020-12-16] MEDS ORDERED: DIGOXIN 250 MCG/ML 2ML AMP ONE (08:54)
[2020-12-16] MEDS: SOLU-MEDROL 125MG VIAL IVP SCH ×2 (09:07→21:08)
[2020-12-16] MEDS: PANTOPRAZOLE 40 MG TAB DR PO SCH (09:08)
[2020-12-16] MEDS: GABAPENTIN 300 MG CAPSULE PO SCH (09:08)
[2020-12-16] MEDS: ENOXAPARIN SODIUM 40 MG/0.4 ML SYRINGE SQ SCH (09:09)
[2020-12-16] MEDS: LEVOFLOXACIN 750 MG/D5W 150 ML 150 ML IV SCH (09:11)
[2020-12-16] MEDS: FUROSEMIDE 40MG VIAL IVP SCH ×2 (09:11→21:08)
[2020-12-16] MEDS: DIGOXIN 250 MCG/ML 2ML AMP IV SCH ×2 (14:42→17:16)
[2020-12-16] MEDS: IPRATROPIUM 0.5 MG/2.5 ML INH IH SCH (18:33)
[2020-12-16] MEDS: INSULIN HUMULIN R 100 UNIT/ML 3ML SQ SCH (21:00)
[2020-12-16] MEDS: BUSPIRONE HCL 5 MG TABLET PO SCH (21:08)
[2020-12-16] MEDS: ASPIRIN 81MG CHEW TAB PO SCH (21:12)
[2020-12-16] MEDS: SERTRALINE HCL 50 MG TABLET PO SCH (21:12)
[2020-12-16] MEDS: MONTELUKAST SODIUM 10 MG TAB PO SCH (21:14)
[2020-12-17] VITALS (24 sets, daily range): BP systolic 109–144; BP diastolic 56–79
[2020-12-17] MEDS: DIGOXIN 250 MCG/ML 2ML AMP IV SCH ×4 (00:07→17:37)
[2020-12-17] MEDS: IPRATROPIUM 0.5 MG/2.5 ML INH IH SCH ×4 (00:12→19:24)
[2020-12-17] MEDS: AMIODARONE 900MG VIAL 450 MG in DEXTROSE 5%-WATER 250 ML IV SCH ×2 (03:07→22:36)
[2020-12-17 03:35] LABS: BASOPHILS % (AUTO) 0.2 % (0.0-5.0); LYMPHOCYTES % (AUTO) 4.4 % (21.0-51.0); MEAN CORPUSCULAR HEMOGLOBIN 28.3 pg (27.0-33.0); MEAN CORPUSCULAR HGB CONC 27.6 g/dL (32.0-36.0); MEAN CORPUSCULAR VOLUME 102.5 fL (79-99); MONOCYTES % (AUTO) 1.9 % (3.0-13.0); NEUTROPHILS % (AUTO) 92.2 % (40.0-77.0); NUCLEATED RED BLOOD CELLS 0.5 % (0.0-0.19); PLATELET COUNT (AUTO) 358 K/uL (130-400); RED BLOOD CELL COUNT(AUTO) 3.22 MIL/uL (4.50-6.20); RED CELL DISTRIBUTION WIDTH 13.6 % (11.0-15.5); WHITE BLOOD COUNT (AUTO) 6.3 K/uL (4.8-10.8)
[2020-12-17 03:51] LABS: BILIRUBIN,TOTAL 0.6 mg/dL (0.2-1.0); CREATININE 0.6 mg/dL (0.5-1.5); MAGNESIUM 1.9 mg/dL (1.80-2.40); PHOSPHORUS 2.9 mg/dL (2.5-4.9); POTASSIUM 4.8 mmol/L (3.5-5.1); TOTAL PROTEIN, SERUM 6.1 g/dL (6.0-8.3)
[2020-12-17] MEDS: INSULIN HUMULIN R 100 UNIT/ML 3ML SQ SCH ×4 (07:30→21:00)
[2020-12-17] MEDS: GABAPENTIN 300 MG CAPSULE PO SCH (08:48)
[2020-12-17] MEDS: PANTOPRAZOLE 40 MG TAB DR PO SCH (08:48)
[2020-12-17] MEDS: SERTRALINE HCL 50 MG TABLET PO SCH (08:49)
[2020-12-17] MEDS: BUSPIRONE HCL 5 MG TABLET PO SCH ×3 (08:49→21:42)
[2020-12-17] MEDS: SOLU-MEDROL 125MG VIAL IVP SCH ×2 (08:49→16:14)
[2020-12-17] MEDS: FUROSEMIDE 40MG VIAL IVP SCH ×2 (08:49→21:41)
[2020-12-17] MEDS: ENOXAPARIN SODIUM 40 MG/0.4 ML SYRINGE SQ SCH (08:50)
[2020-12-17] MEDS: LEVOFLOXACIN 750 MG/D5W 150 ML 150 ML IV SCH (08:50)
[2020-12-17] MEDS: ASPIRIN 81MG CHEW TAB PO SCH (09:15)
[2020-12-17] MEDS: DIGOXIN 125 MCG TABLET PO SCH (09:17)
[2020-12-17] MEDS ORDERED: SIMETHICONE 80 MG TAB.CHEW PO SCH ×2 (12:00)
[2020-12-17] MEDS ORDERED: IOHEXOL 350 MG/ML 100ML INFUS..BTL IV ONE (15:46)
[2020-12-17] MEDS: SUCRALFATE 1 GM TABLET PO SCH (16:14)
[2020-12-17] MEDS: BUDESONIDE 0.5 MG/2 ML INH IH SCH (19:31)
[2020-12-17] MEDS: METOPROLOL TARTRATE 50 MG TAB PO SCH (21:41)
[2020-12-17] MEDS: SIMETHICONE 80 MG TAB.CHEW PO SCH (21:42)
[2020-12-17] MEDS: MONTELUKAST SODIUM 10 MG TAB PO SCH (21:42)
[2020-12-18] VITALS (16 sets, daily range): BP systolic 109–138; BP diastolic 64–77
[2020-12-18] MEDS: SOLU-MEDROL 125MG VIAL IVP SCH ×2 (01:28→08:42)
[2020-12-18 03:34] LABS: BASOPHILS % (AUTO) 0.2 % (0.0-5.0); HEMATOCRIT 31.8 % (42-54); LYMPHOCYTES % (AUTO) 4.9 % (21.0-51.0); MEAN CORPUSCULAR HEMOGLOBIN 29.1 pg (27.0-33.0); MEAN CORPUSCULAR HGB CONC 28.3 g/dL (32.0-36.0); MEAN CORPUSCULAR VOLUME 102.9 fL (79-99); MONOCYTES % (AUTO) 8.6 % (3.0-13.0); NEUTROPHILS % (AUTO) 84.8 % (40.0-77.0); PLATELET COUNT (AUTO) 370 K/uL (130-400); RED BLOOD CELL COUNT(AUTO) 3.09 MIL/uL (4.50-6.20); RED CELL DISTRIBUTION WIDTH 13.8 % (11.0-15.5)
[2020-12-18 04:00] LABS: ALBUMIN 3.1 g/dL (3.5-5.0); BILIRUBIN,TOTAL 0.5 mg/dL (0.2-1.0); CREATININE 0.8 mg/dL (0.5-1.5); POTASSIUM 4.1 mmol/L (3.5-5.1); THYROID STIMULATING HORMONE 0.13 uIU/mL (0.36-3.74)
[2020-12-18] MEDS: SUCRALFATE 1 GM TABLET PO SCH ×3 (06:35→17:00)
[2020-12-18] MEDS: BUDESONIDE 0.5 MG/2 ML INH IH SCH ×2 (06:39→19:01)
[2020-12-18] MEDS: IPRATROPIUM 0.5 MG/2.5 ML INH IH SCH ×3 (06:39→23:34)
[2020-12-18] MEDS: INSULIN HUMULIN R 100 UNIT/ML 3ML SQ SCH ×3 (06:43→16:30)
[2020-12-18 08:11] LABS: ABG HCO3 47.3 mmol/L (21.0-28.0); ABG OXYGEN SATURATION 92.7 % (95.0-99.0); ABG PCO2 84 mmHg (35-48)
[2020-12-18] MEDS: ATORVASTATIN 10 MG TABLET PO SCH (08:40)
[2020-12-18] MEDS: SIMETHICONE 80 MG TAB.CHEW PO SCH ×2 (08:40→22:57)
[2020-12-18] MEDS: SERTRALINE HCL 50 MG TABLET PO SCH (08:41)
[2020-12-18] MEDS: GABAPENTIN 300 MG CAPSULE PO SCH (08:41)
[2020-12-18] MEDS: DIGOXIN 125 MCG TABLET PO SCH (08:41)
[2020-12-18] MEDS: METOPROLOL TARTRATE 50 MG TAB PO SCH ×2 (08:41→22:57)
[2020-12-18] MEDS: BUSPIRONE HCL 5 MG TABLET PO SCH ×3 (08:42→22:56)
[2020-12-18] MEDS: FUROSEMIDE 40MG VIAL IVP SCH ×2 (08:42→22:58)
[2020-12-18] MEDS: ASPIRIN 81MG CHEW TAB PO SCH (08:42)
[2020-12-18] MEDS: LEVOFLOXACIN 750 MG/D5W 150 ML 150 ML IV SCH (08:43)
[2020-12-18] MEDS: ENOXAPARIN SODIUM 40 MG/0.4 ML SYRINGE SQ SCH (08:43)
[2020-12-18] MEDS: PANTOPRAZOLE 40 MG TAB DR PO SCH (08:44)
[2020-12-18] MEDS: SOLU-MEDROL 40MG VIAL IVP SCH ×2 (09:00→21:00)
[2020-12-18 11:01] LABS: B-TYPE NATRIURETIC PEPTIDE 176 pg/mL (0-100)
[2020-12-18 15:35] LABS: ABG BASE EXCESS 32.8 mmol/L (-2.0-3.0); ABG HCO3 67.6 mmol/L (21.0-28.0); ABG OXYGEN SATURATION 95.5 % (95.0-99.0); ABG PCO2 124 mmHg (35-48)
[2020-12-18] MEDS: MONTELUKAST SODIUM 10 MG TAB PO SCH (22:57)
[2020-12-19] MEDS: INSULIN HUMULIN R 100 UNIT/ML 3ML SQ SCH ×5 (02:51→21:00)
[2020-12-19 04:00] VITALS: BP 103/54
[2020-12-19 05:59] LABS: HEMATOCRIT 35.2 % (42-54); MEAN CORPUSCULAR HEMOGLOBIN 28.4 pg (27.0-33.0); MEAN CORPUSCULAR HGB CONC 27.6 g/dL (32.0-36.0); MEAN CORPUSCULAR VOLUME 103.2 fL (79-99); RED BLOOD CELL COUNT(AUTO) 3.41 MIL/uL (4.50-6.20); RED CELL DISTRIBUTION WIDTH 13.7 % (11.0-15.5); WHITE BLOOD COUNT (AUTO) 7.1 K/uL (4.8-10.8)
[2020-12-19 06:10] LABS: CREATININE 0.7 mg/dL (0.5-1.5); POTASSIUM 3.3 mmol/L (3.5-5.1)
[2020-12-19] MEDS: SUCRALFATE 1 GM TABLET PO SCH ×3 (06:42→17:29)
[2020-12-19] MEDS: IPRATROPIUM 0.5 MG/2.5 ML INH IH SCH ×3 (06:49→19:58)
[2020-12-19] MEDS: BUDESONIDE 0.5 MG/2 ML INH IH SCH ×2 (06:49→19:59)
[2020-12-19 07:00] VITALS: BP 121/74
[2020-12-19 08:17] LABS: ABG BASE EXCESS 22.3 mmol/L (-2.0-3.0); ABG HCO3 53.3 mmol/L (21.0-28.0); ABG OXYGEN SATURATION 97.2 % (95.0-99.0); ABG PCO2 105 mmHg (35-48)
[2020-12-19 11:00] VITALS: BP 117/67
[2020-12-19] MEDS: LEVOFLOXACIN 750 MG/D5W 150 ML 150 ML IV SCH (11:57)
[2020-12-19] MEDS: FUROSEMIDE 40MG VIAL IVP SCH ×2 (11:57→22:06)
[2020-12-19] MEDS: SOLU-MEDROL 40MG VIAL IVP SCH ×2 (11:58→22:05)
[2020-12-19] MEDS: BUSPIRONE HCL 5 MG TABLET PO SCH ×3 (11:58→22:03)
[2020-12-19] MEDS: ASPIRIN 81MG CHEW TAB PO SCH (11:58)
[2020-12-19] MEDS: ATORVASTATIN 10 MG TABLET PO SCH (11:59)
[2020-12-19] MEDS: DIGOXIN 125 MCG TABLET PO SCH (11:59)
[2020-12-19] MEDS: METOPROLOL TARTRATE 50 MG TAB PO SCH ×2 (11:59→22:04)
[2020-12-19] MEDS: SIMETHICONE 80 MG TAB.CHEW PO SCH ×2 (12:00→22:07)
[2020-12-19] MEDS: GABAPENTIN 300 MG CAPSULE PO SCH (12:00)
[2020-12-19] MEDS: SERTRALINE HCL 50 MG TABLET PO SCH (12:00)
[2020-12-19] MEDS: PANTOPRAZOLE 40 MG TAB DR PO SCH (12:00)
[2020-12-19] MEDS: ENOXAPARIN SODIUM 40 MG/0.4 ML SYRINGE SQ SCH (12:01)
[2020-12-19] MEDS: KCL 20 MEQ ERTAB PO PRN ×3 (12:05→18:20)
[2020-12-19 16:00] VITALS: BP 125/63
[2020-12-19 19:54] VITALS: BP 112/69
[2020-12-19] MEDS: KCL 20 MEQ ERTAB PO SCH (22:05)
[2020-12-19] MEDS: HYDROCODONE/ACETAMINOPHEN 7.5/325 MG TAB PO PRN (22:05)
[2020-12-19] MEDS: MONTELUKAST SODIUM 10 MG TAB PO SCH (22:07)
[2020-12-19 23:38] VITALS: BP 110/64
[2020-12-20] MEDS: IPRATROPIUM 0.5 MG/2.5 ML INH IH SCH ×5 (00:38→23:51)
[2020-12-20 03:54] VITALS: BP 112/66
[2020-12-20 04:36] LABS: HEMATOCRIT 35.4 % (42-54); MEAN CORPUSCULAR HEMOGLOBIN 28.2 pg (27.0-33.0); MEAN CORPUSCULAR HGB CONC 27.4 g/dL (32.0-36.0); MEAN CORPUSCULAR VOLUME 102.9 fL (79-99); RED BLOOD CELL COUNT(AUTO) 3.44 MIL/uL (4.50-6.20); RED CELL DISTRIBUTION WIDTH 13.3 % (11.0-15.5); WHITE BLOOD COUNT (AUTO) 6.4 K/uL (4.8-10.8)
[2020-12-20 05:14] LABS: CREATININE 0.5 mg/dL (0.5-1.5); POTASSIUM 5.2 mmol/L (3.5-5.1)
[2020-12-20] MEDS: INSULIN HUMULIN R 100 UNIT/ML 3ML SQ SCH ×4 (06:15→22:34)
[2020-12-20] MEDS: SUCRALFATE 1 GM TABLET PO SCH ×3 (06:19→18:05)
[2020-12-20] MEDS: BUDESONIDE 0.5 MG/2 ML INH IH SCH ×2 (07:11→19:25)
[2020-12-20 08:09] VITALS: BP 121/71
[2020-12-20] MEDS: KCL 20 MEQ ERTAB PO SCH ×2 (09:00→21:00)
[2020-12-20] MEDS: LEVOFLOXACIN 750 MG/D5W 150 ML 150 ML IV SCH (10:43)
[2020-12-20] MEDS: ENOXAPARIN SODIUM 40 MG/0.4 ML SYRINGE SQ SCH (10:44)
[2020-12-20] MEDS: ASPIRIN 81MG CHEW TAB PO SCH (10:44)
[2020-12-20] MEDS: GABAPENTIN 300 MG CAPSULE PO SCH (10:47)
[2020-12-20] MEDS: METOPROLOL TARTRATE 50 MG TAB PO SCH ×2 (10:48→22:30)
[2020-12-20] MEDS: SIMETHICONE 80 MG TAB.CHEW PO SCH ×2 (10:48→22:32)
[2020-12-20] MEDS: SOLU-MEDROL 40MG VIAL IVP SCH ×2 (10:48→22:32)
[2020-12-20] MEDS: BUSPIRONE HCL 5 MG TABLET PO SCH ×3 (10:48→22:32)
[2020-12-20] MEDS: SERTRALINE HCL 50 MG TABLET PO SCH (10:48)
[2020-12-20] MEDS: PANTOPRAZOLE 40 MG TAB DR PO SCH (10:48)
[2020-12-20] MEDS: DIGOXIN 125 MCG TABLET PO SCH ×2 (10:49→16:01)
[2020-12-20] MEDS: FUROSEMIDE 40MG VIAL IVP SCH ×2 (10:49→22:42)
[2020-12-20] MEDS: ATORVASTATIN 10 MG TABLET PO SCH (10:49)
[2020-12-20 11:39] LABS: ABG BASE EXCESS 42.8 mmol/L (-2.0-3.0); ABG HCO3 79.2 mmol/L (21.0-28.0); ABG OXYGEN SATURATION 94.7 % (95.0-99.0); ABG PCO2 134 mmHg (35-48)
[2020-12-20 12:00] VITALS: BP 116/71
[2020-12-20 16:00] VITALS: BP 116/82
[2020-12-20] MEDS: HYDROCODONE/ACETAMINOPHEN 7.5/325 MG TAB PO PRN ×2 (16:00→22:56)
[2020-12-20 20:19] VITALS: BP 112/71
[2020-12-20] MEDS: MONTELUKAST SODIUM 10 MG TAB PO SCH (22:32)
[2020-12-21] VITALS (7 sets, daily range): BP systolic 95–119; BP diastolic 52–72
[2020-12-21 04:48] LABS: HEMATOCRIT 35.8 % (42-54); MEAN CORPUSCULAR HEMOGLOBIN 28.4 pg (27.0-33.0); MEAN CORPUSCULAR HGB CONC 27.1 g/dL (32.0-36.0); RED BLOOD CELL COUNT(AUTO) 3.41 MIL/uL (4.50-6.20); RED CELL DISTRIBUTION WIDTH 13.2 % (11.0-15.5); WHITE BLOOD COUNT (AUTO) 6.7 K/uL (4.8-10.8)
[2020-12-21 04:53] LABS: CREATININE 0.5 mg/dL (0.5-1.5); POTASSIUM 5.3 mmol/L (3.5-5.1)
[2020-12-21] MEDS: BUDESONIDE 0.5 MG/2 ML INH IH SCH ×2 (07:05→18:12)
[2020-12-21] MEDS: IPRATROPIUM 0.5 MG/2.5 ML INH IH SCH ×3 (07:05→18:12)
[2020-12-21] MEDS: SUCRALFATE 1 GM TABLET PO SCH ×3 (07:56→16:41)
[2020-12-21] MEDS: INSULIN HUMULIN R 100 UNIT/ML 3ML SQ SCH ×4 (07:56→23:49)
[2020-12-21] MEDS: KCL 20 MEQ ERTAB PO SCH ×2 (09:00→21:00)
[2020-12-21] MEDS: METOPROLOL TARTRATE 50 MG TAB PO SCH ×2 (09:58→23:10)
[2020-12-21] MEDS: SIMETHICONE 80 MG TAB.CHEW PO SCH ×2 (09:58→23:10)
[2020-12-21] MEDS: GABAPENTIN 300 MG CAPSULE PO SCH (09:58)
[2020-12-21] MEDS: PANTOPRAZOLE 40 MG TAB DR PO SCH (09:59)
[2020-12-21] MEDS: ATORVASTATIN 10 MG TABLET PO SCH (10:00)
[2020-12-21] MEDS: BUSPIRONE HCL 5 MG TABLET PO SCH ×3 (10:00→23:10)
[2020-12-21] MEDS: SERTRALINE HCL 50 MG TABLET PO SCH (10:00)
[2020-12-21] MEDS: ASPIRIN 81MG CHEW TAB PO SCH (10:00)
[2020-12-21] MEDS: ENOXAPARIN SODIUM 40 MG/0.4 ML SYRINGE SQ SCH (10:01)
[2020-12-21] MEDS: FUROSEMIDE 40MG VIAL IVP SCH ×2 (10:02→23:10)
[2020-12-21] MEDS: LEVOFLOXACIN 750 MG/D5W 150 ML 150 ML IV SCH (10:02)
[2020-12-21] MEDS ORDERED: KAYEXALATE 15GM/60ML PO SCH (11:01)
[2020-12-21] MEDS: SOLU-MEDROL 40MG VIAL IVP SCH ×2 (12:02→23:11)
[2020-12-21] MEDS: MONTELUKAST SODIUM 10 MG TAB PO SCH (23:10)
[2020-12-22] MEDS: IPRATROPIUM 0.5 MG/2.5 ML INH IH SCH ×4 (00:44→18:15)
[2020-12-22 04:29] VITALS: BP 93/53
[2020-12-22 05:19] LABS: HEMATOCRIT 33.6 % (42-54); MEAN CORPUSCULAR HEMOGLOBIN 27.9 pg (27.0-33.0); MEAN CORPUSCULAR VOLUME 99.7 fL (79-99); RED BLOOD CELL COUNT(AUTO) 3.37 MIL/uL (4.50-6.20); RED CELL DISTRIBUTION WIDTH 13.1 % (11.0-15.5)
[2020-12-22 05:28] LABS: CREATININE 0.4 mg/dL (0.5-1.5); POTASSIUM 3.5 mmol/L (3.5-5.1)
[2020-12-22] MEDS: SUCRALFATE 1 GM TABLET PO SCH ×3 (06:12→17:35)
[2020-12-22] MEDS: INSULIN HUMULIN R 100 UNIT/ML 3ML SQ SCH ×4 (06:18→23:26)
[2020-12-22] MEDS: BUDESONIDE 0.5 MG/2 ML INH IH SCH ×2 (06:52→18:15)
[2020-12-22 08:00] VITALS: BP 107/68
[2020-12-22] MEDS: SOLU-MEDROL 40MG VIAL IVP SCH ×2 (10:36→20:45)
[2020-12-22] MEDS: METOPROLOL TARTRATE 50 MG TAB PO SCH ×2 (10:37→20:44)
[2020-12-22] MEDS: SIMETHICONE 80 MG TAB.CHEW PO SCH ×2 (10:37→20:44)
[2020-12-22] MEDS: PANTOPRAZOLE 40 MG TAB DR PO SCH (10:37)
[2020-12-22] MEDS: FUROSEMIDE 40MG VIAL IVP SCH ×2 (10:37→20:45)
[2020-12-22] MEDS: GABAPENTIN 300 MG CAPSULE PO SCH (10:37)
[2020-12-22] MEDS: DIGOXIN 125 MCG TABLET PO SCH (10:38)
[2020-12-22] MEDS: ATORVASTATIN 10 MG TABLET PO SCH (10:38)
[2020-12-22] MEDS: KCL 20 MEQ ERTAB PO SCH ×2 (10:38→20:44)
[2020-12-22] MEDS: BUSPIRONE HCL 5 MG TABLET PO SCH ×3 (10:38→20:44)
[2020-12-22] MEDS: ASPIRIN 81MG CHEW TAB PO SCH (10:39)
[2020-12-22] MEDS: ENOXAPARIN SODIUM 40 MG/0.4 ML SYRINGE SQ SCH (10:39)
[2020-12-22] MEDS: SERTRALINE HCL 50 MG TABLET PO SCH (10:39)
[2020-12-22] MEDS: LEVOFLOXACIN 750 MG/D5W 150 ML 150 ML IV SCH (10:43)
[2020-12-22 12:02] VITALS: BP 124/68
[2020-12-22 16:00] VITALS: BP 108/61
[2020-12-22 20:00] VITALS: BP 103/55
[2020-12-22] MEDS: MONTELUKAST SODIUM 10 MG TAB PO SCH (20:45)
[2020-12-23] VITALS: BP 109/66
[2020-12-23] MEDS: IPRATROPIUM 0.5 MG/2.5 ML INH IH SCH ×4 (00:15→19:09)
[2020-12-23] MEDS: HYDROCODONE/ACETAMINOPHEN 7.5/325 MG TAB PO PRN ×2 (01:39→22:03)
[2020-12-23 04:00] VITALS: BP 104/67
[2020-12-23] MEDS: SUCRALFATE 1 GM TABLET PO SCH ×3 (06:23→18:09)
[2020-12-23] MEDS: INSULIN HUMULIN R 100 UNIT/ML 3ML SQ SCH ×4 (06:25→22:06)
[2020-12-23] MEDS: BUDESONIDE 0.5 MG/2 ML INH IH SCH ×2 (06:48→19:25)
[2020-12-23 07:58] VITALS: BP 112/68
[2020-12-23] MEDS: FUROSEMIDE 40MG VIAL IVP SCH ×2 (10:33→22:04)
[2020-12-23] MEDS: BUSPIRONE HCL 5 MG TABLET PO SCH ×3 (10:33→22:04)
[2020-12-23] MEDS: SERTRALINE HCL 50 MG TABLET PO SCH (10:33)
[2020-12-23] MEDS: PANTOPRAZOLE 40 MG TAB DR PO SCH (10:34)
[2020-12-23] MEDS: DIGOXIN 125 MCG TABLET PO SCH (10:34)
[2020-12-23] MEDS: METOPROLOL TARTRATE 50 MG TAB PO SCH ×2 (10:34→22:05)
[2020-12-23] MEDS: GABAPENTIN 300 MG CAPSULE PO SCH (10:34)
[2020-12-23] MEDS: KCL 20 MEQ ERTAB PO SCH ×2 (10:34→22:05)
[2020-12-23] MEDS: LEVOFLOXACIN 750 MG/D5W 150 ML 150 ML IV SCH (10:35)
[2020-12-23] MEDS: SIMETHICONE 80 MG TAB.CHEW PO SCH ×2 (10:35→22:04)
[2020-12-23] MEDS: ASPIRIN 81MG CHEW TAB PO SCH (10:35)
[2020-12-23] MEDS: ENOXAPARIN SODIUM 40 MG/0.4 ML SYRINGE SQ SCH (10:39)
[2020-12-23] MEDS: ATORVASTATIN 10 MG TABLET PO SCH (10:42)
[2020-12-23 11:39] VITALS: BP 132/79
[2020-12-23 15:51] VITALS: BP 110/70
[2020-12-23 20:12] VITALS: BP 99/62
[2020-12-23] MEDS: MONTELUKAST SODIUM 10 MG TAB PO SCH (22:05)
[2020-12-24] VITALS (32 sets, daily range): BP systolic 100–145; BP diastolic 58–79
[2020-12-24] MEDS: IPRATROPIUM 0.5 MG/2.5 ML INH IH SCH ×4 (01:23→18:49)
[2020-12-24 05:58] LABS: HEMATOCRIT 35.3 % (42-54); MEAN CORPUSCULAR HEMOGLOBIN 28.4 pg (27.0-33.0); MEAN CORPUSCULAR HGB CONC 29.2 g/dL (32.0-36.0); MEAN CORPUSCULAR VOLUME 97.2 fL (79-99); PLATELET COUNT (AUTO) 184 K/uL (130-400); RED BLOOD CELL COUNT(AUTO) 3.63 MIL/uL (4.50-6.20); RED CELL DISTRIBUTION WIDTH 13.1 % (11.0-15.5); WHITE BLOOD COUNT (AUTO) 9.3 K/uL (4.8-10.8)
[2020-12-24 06:06] LABS: CREATININE 0.5 mg/dL (0.5-1.5); POTASSIUM 4.1 mmol/L (3.5-5.1)
[2020-12-24 06:20] LABS: INR 1.03 (0.85-1.15); PROTHROMBIN TIME 11.2 SEC (9.6-11.6)
[2020-12-24 06:21] LABS: PARTIAL THROMBOPLASTIN TIME 23.9 SEC (26.3-35.5)
[2020-12-24] MEDS: BUDESONIDE 0.5 MG/2 ML INH IH SCH ×2 (06:33→18:50)
[2020-12-24] MEDS: SUCRALFATE 1 GM TABLET PO SCH ×3 (06:41→12:20)
[2020-12-24] MEDS: INSULIN HUMULIN R 100 UNIT/ML 3ML SQ SCH ×4 (06:43→21:00)
[2020-12-24] MEDS ORDERED: LIDOCAINE 1%-EPI 1:100,000 20 ML VIAL IJ ONE (06:45)
[2020-12-24] MEDS ORDERED: LIDOCAINE PF 100MG/5ML (2%) SYRINGE 5ML ONE (07:06)
[2020-12-24] MEDS ORDERED: PROPOFOL 10 MG/ML 20ML VIAL IV ONE (07:06)
[2020-12-24] MEDS ORDERED: ROCURONIUM 10MG/1ML SYR 10 MG/ML ML ONE (07:07)
[2020-12-24] MEDS ORDERED: SUCCINYLCHOLINE 200MG/10ML SYR ONE (07:16)
[2020-12-24 07:24] LABS: ABG BASE EXCESS 28.1 mmol/L (-2.0-3.0); ABG HCO3 60.9 mmol/L (21.0-28.0); ABG OXYGEN SATURATION 92.2 % (95.0-99.0); ABG PCO2 105 mmHg (35-48)
[2020-12-24] MEDS ORDERED: 0.9%NACL 1000ML 1,000 ML IV ONE (07:39)
[2020-12-24] MEDS ORDERED: PHENYLEPHRINE HCL 10 MG/ML 1ML VIAL IV ONE (08:10)
[2020-12-24] MEDS ORDERED: 0.9%NACL 10ML VIAL ONE (08:10)
[2020-12-24] MEDS ORDERED: PHENYLEPHRINE HCL 10 MG/ML 1ML VIAL IV SCH (08:30)
[2020-12-24] MEDS ORDERED: MEPERIDINE-PF 25 MG/ML SYG ONE (08:38)
[2020-12-24] MEDS: ASPIRIN 81MG CHEW TAB PO SCH (09:00)
[2020-12-24] MEDS: METOPROLOL TARTRATE 50 MG TAB PO SCH ×2 (09:00→21:13)
[2020-12-24] MEDS: ENOXAPARIN SODIUM 40 MG/0.4 ML SYRINGE SQ SCH (09:00)
[2020-12-24] MEDS: SIMETHICONE 80 MG TAB.CHEW PO SCH ×2 (09:00→21:40)
[2020-12-24] MEDS: DIGOXIN 125 MCG TABLET PO SCH ×2 (09:00→13:06)
[2020-12-24] MEDS: PANTOPRAZOLE 40 MG TAB DR PO SCH (09:00)
[2020-12-24] MEDS: FUROSEMIDE 40MG VIAL IVP SCH ×2 (09:00→21:12)
[2020-12-24] MEDS: BUSPIRONE HCL 5 MG TABLET PO SCH ×3 (09:00→21:13)
[2020-12-24] MEDS: SERTRALINE HCL 50 MG TABLET PO SCH (09:00)
[2020-12-24] MEDS: KCL 20 MEQ ERTAB PO SCH ×2 (09:00→21:14)
[2020-12-24] MEDS: GABAPENTIN 300 MG CAPSULE PO SCH (09:00)
[2020-12-24] MEDS: ATORVASTATIN 10 MG TABLET PO SCH (09:00)
[2020-12-24] MEDS: LEVOFLOXACIN 750 MG/D5W 150 ML 150 ML IV SCH (09:03)
[2020-12-24] MEDS ORDERED: DIGOXIN 250 MCG/ML 2ML AMP IV SCH (11:45)
[2020-12-24] MEDS ORDERED: METOPROLOL TARTRATE 1 MG/ML 5ML VIAL IV PRN (11:45)
[2020-12-24] MEDS ORDERED: PANTOPRAZOLE 40 MG/VIAL IVP SCH (11:45)
[2020-12-24 13:18] LABS: ABG BASE EXCESS 26.3 mmol/L (-2.0-3.0); ABG HCO3 57.5 mmol/L (21.0-28.0); ABG OXYGEN SATURATION 96.1 % (95.0-99.0); ABG PCO2 91 mmHg (35-48)
[2020-12-24] MEDS: MORPHINE 2 MG SYG IVP PRN (21:14)
[2020-12-24] MEDS: MONTELUKAST SODIUM 10 MG TAB PO SCH (21:41)
[2020-12-25] VITALS (24 sets, daily range): BP systolic 99–134; BP diastolic 59–96
[2020-12-25] MEDS: IPRATROPIUM 0.5 MG/2.5 ML INH IH SCH ×4 (00:18→18:29)
[2020-12-25 03:51] LABS: HEMATOCRIT 34.4 % (42-54); MEAN CORPUSCULAR HEMOGLOBIN 28.5 pg (27.0-33.0); MEAN CORPUSCULAR HGB CONC 29.1 g/dL (32.0-36.0); RED BLOOD CELL COUNT(AUTO) 3.51 MIL/uL (4.50-6.20); RED CELL DISTRIBUTION WIDTH 13.4 % (11.0-15.5); WHITE BLOOD COUNT (AUTO) 11.4 K/uL (4.8-10.8)
[2020-12-25 04:15] LABS: CREATININE 0.5 mg/dL (0.5-1.5); POTASSIUM 4.2 mmol/L (3.5-5.1)
[2020-12-25 05:02] LABS: ABG BASE EXCESS 22.4 mmol/L (-2.0-3.0); ABG HCO3 54.1 mmol/L (21.0-28.0); ABG OXYGEN SATURATION 96.6 % (95.0-99.0); ABG PCO2 97 mmHg (35-48)
[2020-12-25] MEDS: BUDESONIDE 0.5 MG/2 ML INH IH SCH ×2 (06:53→18:29)
[2020-12-25] MEDS: INSULIN HUMULIN R 100 UNIT/ML 3ML SQ SCH ×4 (07:30→20:34)
[2020-12-25] MEDS: SUCRALFATE 1 GM TABLET PO SCH ×3 (07:30→17:37)
[2020-12-25] MEDS: FUROSEMIDE 40MG VIAL IVP SCH ×2 (09:58→20:12)
[2020-12-25] MEDS: LEVOFLOXACIN 750 MG/D5W 150 ML 150 ML IV SCH (09:59)
[2020-12-25] MEDS: ASPIRIN 81MG CHEW TAB PO SCH (09:59)
[2020-12-25] MEDS: BUSPIRONE HCL 5 MG TABLET PO SCH ×3 (09:59→20:15)
[2020-12-25] MEDS: METOPROLOL TARTRATE 50 MG TAB PO SCH ×2 (10:00→20:15)
[2020-12-25] MEDS: KCL 20 MEQ ERTAB PO SCH ×2 (10:02→20:16)
[2020-12-25] MEDS: ENOXAPARIN SODIUM 40 MG/0.4 ML SYRINGE SQ SCH (10:11)
[2020-12-25] MEDS: SERTRALINE HCL 50 MG TABLET PO SCH (10:12)
[2020-12-25] MEDS: GABAPENTIN 300 MG CAPSULE PO SCH (10:14)
[2020-12-25] MEDS: PANTOPRAZOLE 40 MG TAB DR PO SCH (10:14)
[2020-12-25] MEDS: SIMETHICONE 80 MG TAB.CHEW PO SCH ×2 (10:25→20:12)
[2020-12-25] MEDS: ATORVASTATIN 10 MG TABLET PO SCH (10:25)
[2020-12-25] MEDS ORDERED: PHARMACY COMMUNICATION MISC SCH (12:30)
[2020-12-25] MEDS: MONTELUKAST SODIUM 10 MG TAB PO SCH (20:12)
[2020-12-25] MEDS: MORPHINE 2 MG SYG IVP PRN (21:47)
[2020-12-25] MEDS: ONDANSETRON 4MG INJ IVP PRN (21:47)
[2020-12-26] VITALS (24 sets, daily range): BP systolic 94–123; BP diastolic 55–104
[2020-12-26] MEDS: IPRATROPIUM 0.5 MG/2.5 ML INH IH SCH ×4 (00:20→18:40)
[2020-12-26] MEDS: BUDESONIDE 0.5 MG/2 ML INH IH SCH ×2 (06:35→18:40)
[2020-12-26] MEDS: INSULIN HUMULIN R 100 UNIT/ML 3ML SQ SCH ×4 (07:30→21:20)
[2020-12-26] MEDS: SUCRALFATE 1 GM TABLET PO SCH ×3 (07:30→17:00)
[2020-12-26] MEDS: GABAPENTIN 300 MG CAPSULE PO SCH (08:11)
[2020-12-26] MEDS: PANTOPRAZOLE 40 MG TAB DR PO SCH (08:11)
[2020-12-26] MEDS: SERTRALINE HCL 50 MG TABLET PO SCH (08:11)
[2020-12-26] MEDS: METOPROLOL TARTRATE 50 MG TAB PO SCH ×2 (08:11→21:00)
[2020-12-26] MEDS: ASPIRIN 81MG CHEW TAB PO SCH (08:11)
[2020-12-26] MEDS: ENOXAPARIN SODIUM 40 MG/0.4 ML SYRINGE SQ SCH (08:12)
[2020-12-26] MEDS: LEVOFLOXACIN 750 MG/D5W 150 ML 150 ML IV SCH (08:13)
[2020-12-26] MEDS: BUSPIRONE HCL 5 MG TABLET PO SCH ×3 (09:42→21:07)
[2020-12-26] MEDS: FUROSEMIDE 40MG VIAL IVP SCH ×2 (09:42→21:07)
[2020-12-26] MEDS: KCL 20 MEQ ERTAB PO SCH ×2 (09:43→21:07)
[2020-12-26] MEDS: SIMETHICONE 80 MG TAB.CHEW PO SCH ×2 (11:02→21:12)
[2020-12-26] MEDS: DIGOXIN 125 MCG TABLET PO SCH (11:02)
[2020-12-26] MEDS: ATORVASTATIN 10 MG TABLET PO SCH (11:03)
[2020-12-26] MEDS: HYDROCODONE/ACETAMINOPHEN 7.5/325 MG TAB PO PRN (11:16)
[2020-12-26] MEDS: MONTELUKAST SODIUM 10 MG TAB PO SCH (21:12)
[2020-12-26] MEDS: ONDANSETRON 4MG INJ IVP PRN (21:32)
[2020-12-26] MEDS: MORPHINE 2 MG SYG IVP PRN (21:32)
[2020-12-27] VITALS (23 sets, daily range): BP systolic 98–140; BP diastolic 44–78
[2020-12-27] MEDS: BUDESONIDE 0.5 MG/2 ML INH IH SCH ×2 (06:22→18:25)
[2020-12-27] MEDS: IPRATROPIUM 0.5 MG/2.5 ML INH IH SCH ×3 (06:22→18:30)
[2020-12-27] MEDS: GABAPENTIN 300 MG CAPSULE PO SCH (08:11)
[2020-12-27] MEDS: ENOXAPARIN SODIUM 40 MG/0.4 ML SYRINGE SQ SCH (08:11)
[2020-12-27] MEDS: METOPROLOL TARTRATE 50 MG TAB PO SCH ×2 (08:12→20:40)
[2020-12-27] MEDS: SERTRALINE HCL 50 MG TABLET PO SCH (08:12)
[2020-12-27] MEDS: ASPIRIN 81MG CHEW TAB PO SCH (08:12)
[2020-12-27] MEDS: LEVOFLOXACIN 750 MG/D5W 150 ML 150 ML IV SCH (08:13)
[2020-12-27] MEDS: FUROSEMIDE 40MG VIAL IVP SCH (08:13)
[2020-12-27] MEDS: BUSPIRONE HCL 5 MG TABLET PO SCH ×3 (08:13→20:40)
[2020-12-27] MEDS: SIMETHICONE 80 MG TAB.CHEW PO SCH ×2 (08:14→20:44)
[2020-12-27] MEDS: SUCRALFATE 1 GM TABLET PO SCH ×3 (08:14→16:58)
[2020-12-27] MEDS: DIGOXIN 125 MCG TABLET PO SCH (08:14)
[2020-12-27] MEDS: ATORVASTATIN 10 MG TABLET PO SCH (08:19)
[2020-12-27] MEDS: KCL 20 MEQ ERTAB PO SCH ×2 (08:21→20:40)
[2020-12-27] MEDS: INSULIN HUMULIN R 100 UNIT/ML 3ML SQ SCH ×4 (08:23→20:49)
[2020-12-27] MEDS: PANTOPRAZOLE 40 MG TAB DR PO SCH (09:31)
[2020-12-27] MEDS: MONTELUKAST SODIUM 10 MG TAB PO SCH (20:44)
[2020-12-28] VITALS (18 sets, daily range): BP systolic 94–125; BP diastolic 51–84
[2020-12-28] MEDS: IPRATROPIUM 0.5 MG/2.5 ML INH IH SCH ×4 (00:17→19:10)
[2020-12-28 04:03] LABS: BASOPHILS % (AUTO) 0.3 % (0.0-5.0); EOSINOPHILS % (AUTO) 1.7 % (0.0-8.0); HEMATOCRIT 33.3 % (42-54); LYMPHOCYTES % (AUTO) 10.7 % (21.0-51.0); MEAN CORPUSCULAR HEMOGLOBIN 27.9 pg (27.0-33.0); MEAN CORPUSCULAR HGB CONC 29.4 g/dL (32.0-36.0); MEAN CORPUSCULAR VOLUME 94.9 fL (79-99); MONOCYTES % (AUTO) 15.5 % (3.0-13.0); NEUTROPHILS % (AUTO) 68.8 % (40.0-77.0); PLATELET COUNT (AUTO) 178 K/uL (130-400); RED BLOOD CELL COUNT(AUTO) 3.51 MIL/uL (4.50-6.20); RED CELL DISTRIBUTION WIDTH 13.6 % (11.0-15.5); WHITE BLOOD COUNT (AUTO) 11.5 K/uL (4.8-10.8)
[2020-12-28 04:29] LABS: ALBUMIN 2.6 g/dL (3.5-5.0); BILIRUBIN,TOTAL 0.5 mg/dL (0.2-1.0); CREATININE 0.6 mg/dL (0.5-1.5); MAGNESIUM 1.9 mg/dL (1.80-2.40); POTASSIUM 3.7 mmol/L (3.5-5.1); THYROID STIMULATING HORMONE 0.52 uIU/mL (0.36-3.74); TOTAL PROTEIN, SERUM 6.2 g/dL (6.0-8.3)
[2020-12-28] MEDS: BUDESONIDE 0.5 MG/2 ML INH IH SCH ×2 (06:24→19:10)
[2020-12-28] MEDS: SUCRALFATE 1 GM TABLET PO SCH ×3 (07:46→16:47)
[2020-12-28] MEDS: INSULIN HUMULIN R 100 UNIT/ML 3ML SQ SCH ×4 (07:56→21:14)
[2020-12-28] MEDS: SIMETHICONE 80 MG TAB.CHEW PO SCH ×2 (08:00→21:08)
[2020-12-28] MEDS: BUSPIRONE HCL 5 MG TABLET PO SCH ×3 (08:03→21:06)
[2020-12-28] MEDS: ASPIRIN 81MG CHEW TAB PO SCH (08:03)
[2020-12-28] MEDS: PANTOPRAZOLE 40 MG TAB DR PO SCH (08:04)
[2020-12-28] MEDS: GABAPENTIN 300 MG CAPSULE PO SCH (08:04)
[2020-12-28] MEDS: SERTRALINE HCL 50 MG TABLET PO SCH (08:04)
[2020-12-28] MEDS: METOPROLOL TARTRATE 50 MG TAB PO SCH ×2 (08:04→21:05)
[2020-12-28] MEDS: DIGOXIN 125 MCG TABLET PO SCH (08:05)
[2020-12-28] MEDS: KCL 20 MEQ ERTAB PO SCH ×2 (08:06→21:06)
[2020-12-28] MEDS: ENOXAPARIN SODIUM 40 MG/0.4 ML SYRINGE SQ SCH (08:08)
[2020-12-28] MEDS: ATORVASTATIN 10 MG TABLET PO SCH (08:11)
[2020-12-28] MEDS ORDERED: LEVOFLOXACIN 750 MG/D5W 150 ML 150 ML IV SCH (09:00)
[2020-12-28] MEDS ORDERED: PREDNISONE 20 MG TABLET PO SCH (09:00)
[2020-12-28] MEDS ORDERED: FUROSEMIDE 40 MG TABLET PO SCH (09:00)
[2020-12-28] MEDS: MONTELUKAST SODIUM 10 MG TAB PO SCH (21:08)
[2020-12-28] MEDS: HYDROCODONE/ACETAMINOPHEN 7.5/325 MG TAB PO PRN (22:37)
[2020-12-29] VITALS: BP 117/73
[2020-12-29] MEDS: IPRATROPIUM 0.5 MG/2.5 ML INH IH SCH (00:07)
[2020-12-29 01:00] VITALS: BP 116/66
[2020-12-29 02:00] VITALS: BP 112/63
[2020-12-29 03:00] VITALS: BP 109/64
[2020-12-29 04:00] VITALS: BP 117/65
[2020-12-29 05:00] VITALS: BP 119/66
== END 2020-12-29 06:12 | DRG 4 ==
LOC: EDH 13:29 → UNDOADMOB 14:58 → INTOOBSV 14:58 → OBSVTOIN 14:58 → EDHIP 14:58 → 4CH 23:17 → EDHIP 23:17 → 2DH 12-16 06:32 → 4CH 12-16 06:32 → 2CH 12-24 09:59 → 2DH 12-25 12:46
PROVIDERS: ADMIT Internal Medicine Critical Care Medicine; ATTEND Internal Medicine Critical Care Medicine
PROC: 5A09357 Assistance with Respiratory Ventilation, Less than 24 Consecutive Hours, Continuous Positive Airway Pressure (ICD-10-PCS; 2020-12-16)
PROC: 5A09357 Assistance with Respiratory Ventilation, Less than 24 Consecutive Hours, Continuous Positive Airway Pressure (ICD-10-PCS; 2020-12-17)
PROC: 5A09357 Assistance with Respiratory Ventilation, Less than 24 Consecutive Hours, Continuous Positive Airway Pressure (ICD-10-PCS; 2020-12-18)
PROC: 5A09357 Assistance with Respiratory Ventilation, Less than 24 Consecutive Hours, Continuous Positive Airway Pressure (ICD-10-PCS; 2020-12-19)
PROC: 0B110F4 Bypass Trachea to Cutaneous with Tracheostomy Device, Open Approach (ICD-10-PCS; principal; 2020-12-24 07:55)
DX: J96.21 Acute and chronic respiratory failure with hypoxia (principal); I50.33 Acute on chronic diastolic (congestive) heart failure; J44.1 Chronic obstructive pulmonary disease with (acute) exacerbation; I48.20 Chronic atrial fibrillation, unspecified; E66.2 Morbid (severe) obesity with alveolar hypoventilation; J96.22 Acute and chronic respiratory failure with hypercapnia; M41.9 Scoliosis, unspecified; I11.0 Hypertensive heart disease with heart failure; J98.4 Other disorders of lung; E11.9 Type 2 diabetes mellitus without complications; E78.5 Hyperlipidemia, unspecified; I27.81 Cor pulmonale (chronic); K42.9 Umbilical hernia without obstruction or gangrene; Z20.822 Contact with and (suspected) exposure to COVID-19; F32.9 Major depressive disorder, single episode, unspecified; F41.9 Anxiety disorder, unspecified; Z79.82 Long term (current) use of aspirin; Z79.899 Other long term (current) drug therapy; Z91.19 Patient's noncompliance with other medical treatment and regimen; Z79.84 Long term (current) use of oral hypoglycemic drugs
CPT/HCPCS: 36415; 36600; 71045; 71275; 80048; 80053; 80162; 81001; 82435; 82550; 82803; 82947; 82948; 83605; 83735; 83880; 84100; 84132; 84145; 84295; 84439; 84443; 84480; 84484; 85018; 85025; 85027; 85378; 85610; 85730; 87040; 87071; 87205; 87426; 87804; 87880; 92526; 92597; 92610; 93005; 93306; 93970; 94640; 94660; 94664; 97039; 99291; C9113; G0378; J0282; J0330; J1160; J1650; J1815; J1940; J1956; J2001; J2175; J2370; J2405; J2704; J2920; J2930; J3490; J7030; J7060; L8501; Q9967; U0003